=== PATIENT | female | born 1940 | race Caucasian/White ===

== ENCOUNTER 2021-08-28 07:07 | Emergency (ER) | payer OTHER ==
--- OUTSIDE RECORDS SUMMARY | 2021-08-28 07:09 | XMS REPORT | Continuity of Care Document ---
:1940 Author Organization [facility] Address [address] [place] [address] Care Team Providers Name Role Phone Rosa Elena Gianluca Primary Care Physician Seema BURGOS Attending Clinician Unavailable Pob, Lab Main Attending Clinician Unavailable Seema Burgos MD Attending Clinician Doctor Unassigned, Name Attending Clinician Unavailable Lab, Fam Pob I Attending Clinician Unavailable Anene L[employer]GR[employer]ESS FEEDER Attending Clinician ANEYAO Attending Clinician Unavailable Adolfo Attending Clinician Unavailable Seema BURGOS Admitting Clinician Unavailable Payers Payer Name Policy Type Policy Number Effective Date Expiration Date S johanna SANFORDTRUPALI MANAGED [id number] 2020 MEDICARE PPO-MARLON 00:00:00 Problems This patient has no known problems. Allergies, Adverse Reactions, Alerts Allergy Allergy Status Severity Reaction(s) Onset Inactive Treating Comm ents Source Name Type Date Date Clinician NO KNOWN Drug Active Univers ALLERGIE Class ity of [facility] Social History Social Habit Start Date Stop Date Quantity Comments Source Exposure to Yes [facility] SARS-CoV-2 (event) Medica l Branch Sex Assigned At [birth year] [facility] 00:00:00 00:00:00 Medical Branch Smoking Status Start Date Stop Date Source Unknown if ever smoked [facility] Medications This patient has no known medications. Procedures Procedure Date / Time Performed Performing Clinician Sourc e CBC WITH DIFF 2021-05-10 19:01:00 Severiano Burgos [facility] ASSIGNMENT OF BENEFITS 2021-05-10 18:28:51 Doctor Unassigned, No [facility] Encounters Start End Encounter Admission Attending Care Care Encounter Source Date/Time Date/Time Type Type Clinicians Facility Department ID 2021-07-03 Outpatient R TRE [facility] OPH [id number] Univers 17:51:00 SEVERIANO itche [facility] 2021-05-16 2021-05-16 Outpatient R [facility] [id number] Univers 11:00:00 11:00:00 [id number] ity [facility] 2021-05-10 2021-05-10 [employer] Jesus Luciano Lab Main [facility] 1.2.8 [id number] Univers 13:41:14 13:56:14 Visit Tre Severiano Del Cid 350.1.13.1 0 ity of [place] [phone] [facility] [address] 2021-05-10 2021-05-10 Outpatient R [facility] [id number] Univers 11:45:00 11:45:00 [id number] ity [facility] 2021-05-10 2021-05-10 Outpatient R TRE [facility] [id number] Univers 11:45:00 11:45:00 SEVERIANO che [facility] 2021-05-10 2021-05-10 Orders Doctor MILAGROS [id number] Univers 00:00:00 00:00:00 Only Unassigned, LAUREN 350.1.13.10 ity of [place] [facility] 4.2.7.2.686 Javier as [phone] [address] 2020-08-02 2020-08-02 Laboratory Lab, [facility] Fam Pob I [facility] 1.2. [id number] Univers 16:02:10 16:22:10 Only Anene, [facility] 350.1.13.10 ity of [place] 4.2.7.2.686 Javier as Professio [phone] Vt dical nal [address] 2020-08-02 2020-08-02 Laboratory Lab, [facility] [id number] 16:02:10 16:22:10 Only Fam Pob I Health 350.1.13.10 [place] 4.2.7.2.686 Tarah [phone] nal [address] 2020-08-02 2020-08-02 Outpatient Hermelindo GUY [facility] [id number] Univers 16:00:00 16:00:00 KELLY chen [facility] Results Test Description Test Time Test Comments Results Result Comments Source CBC WITH DIFF 2021-05-10 19:04:39 Test Item Value Reference Range Interpretation Comme nts WBC (test code = 6690-2) See_Comment [A utomated message] The system which ge nerated this result transmit tracie reference range: 4.30 - 1 1.10 10*3/?L. The reference r melanie was not used to interpr et this result as normal/abnor mal. RBC (test code = 789-8) See_Comment L [Au tomated message] The system which ge nerated this result transmit tracie reference range: 3.93 - 5 .25 10*6/?L. The reference r melanie was not used to interpr et this result as normal/abnor mal. HGB (test code = 718-7) 11.8 g/dL 11.6-15.0 HCT (test code = 4544-3) 37.5 % 35.7-45.2 MCV (test code = 787-2) 100.5 fL 80.6-95.5 H MCH (test code = 785-6) 31.6 pg 25.9-32.8 MCHC (test code = 786-4) 31.5 g/dL 31.6-35.1 L RDW-SD (test code = 41812-7) 46.1 fL 39.0-49.9 RDW-CV (test code = 788-0) 12.5 % 12.0-15.5 PLT (test code = 777-3) See_Comment [Au tomated message] The system which ge nerated this result transmit tracie reference range: 166 - 35 8 10*3/?L. The reference range was not used to interpret th is result as normal/abnormal . MPV (test code = 91237-3) 10.4 fL 9.5-12.9 NRBC/100 WBC (test code = See_Comment [ Automated message] The [id number]) system which Playto nerated this result transmit tracie reference range: 0.0 - 10 .0 /100 WBCs. The reference r melanie was not used to interpr et this result as normal/abnor mal. NRBC x10^3 (test code = <0.01 See_Comment [Au tomated message] The [id number]) system which Playto nerated this result transmit tracie reference range: 10*3/?L. The reference range was not u sed to interpret this result as normal/abnormal . GRAN MAT (NEUT) % (test code 64.8 % = 770-8) IMM GRAN % (test code = 0.30 % [id number]) LYMPH % (test code = 736-9) 29.0 % MONO % (test code = 5905-5) 4.8 % EOS % (test code = 713-8) 0.5 % BASO % (test code = 706-2) 0.6 % GRAN MAT x10^3(ANC) (test 5.14 10*3/uL 1.88-7.09 code = 8589492372) IMM GRAN x10^3 (test code = <0.03 0.00-0.06 6623482823) LYMPH x10^3 (test code = 2.30 10*3/uL 1.32-3.29 731-0) MONO x10^3 (test code = 0.38 10*3/uL 0.33-0.92 742-7) EOS x10^3 (test code = 0.04 10*3/uL 0.03-0.39 711-2) BASO x10^3 (test code = 0.05 10*3/uL 0.01-0.07 704-7) Lab Interpretation (test Abnormal code = 60216-1) [facility] WITH [id number] 19:04:39 Test Item Value Reference Range Interpretation Comments WBC (test code = See_Comment [Automated 0590-2) message] The sy stem which generated this result transmitted reference range : 4.30 - 11.10 10*3/?L. The reference range was not used to interpret this result as normal/abnormal . RBC (test code = See_Comment L [Automated 929-8) message] The sy stem which generated this result transmitted reference range : 3.93 - 5.25 10*6/?L. The reference range was not used to interpret this result as normal/abnormal . HGB (test code = 11.8 g/dL 11.6-15.0 718-7) HCT (test code = 37.5 % 35.7-45.2 4544-3) MCV (test code = 100.5 fL 80.6-95.5 H 787-2) MCH (test code = 31.6 pg 25.9-32.8 785-6) MCHC (test code = 31.5 g/dL 31.6-35.1 L 786-4) RDW-SD (test code = 46.1 fL 39.0-49.9 74044-6) RDW-CV (test code = 12.5 % 12.0-15.5 788-0) PLT (test code = See_Comment [Automated 777-3) message] The sy stem which generated this result transmitted reference range : 166 - 358 10*3/ ?L. The reference r melanie was not used to interpret this result as normal/abnormal . MPV (test code = 10.4 fL 9.5-12.9 71259-7) NRBC/100 WBC (test See_Comment [Automat ed code = 3998104818) message] The system which generated this result transmitted reference range : 0.0 - 10.0 /100 WBCs. The refer ence range was not u sed to interpret th is result as normal/abnormal . NRBC x10^3 (test code <0.01 See_Comment [Auto mated = [id number]) message] The s ystem which generated this result transmitted reference range : 10*3/?L. The reference range was not used to interpret this result as normal/abnormal . GRAN MAT (NEUT) % 64.8 % (test code = 770-8) IMM GRAN % (test code 0.30 % = 0442247695) LYMPH % (test code = 29.0 % 736-9) MONO % (test code = 4.8 % 5905-5) EOS % (test code = 0.5 % 713-8) BASO % (test code = 0.6 % 706-2) GRAN MAT x10^3(ANC) 5.14 10*3/uL 1.88-7.09 (test code = 6856114235) IMM GRAN x10^3 (test <0.03 0.00-0.06 code = 0587521211) LYMPH x10^3 (test code 2.30 10*3/uL 1.32-3.29 = 731-0) MONO x10^3 (test code 0.38 10*3/uL 0.33-0.92 = 742-7) EOS x10^3 (test code = 0.04 10*3/uL 0.03-0.39 711-2) BASO x10^3 (test code 0.05 10*3/uL 0.01-0.07 = 704-7) Lab Interpretation Abnormal (test code = 35270-5) [facility] LUMBAR [id number] 11:34:29 [facility] : 1940 Sex: FCLINICAL INDICATION: M54.16 Radiculopathy, lumbar region, bilateral low back hip and leg pain.MODALITY: Veroldsis 1.2 Evelin [place] Open MRITECHNIQUE: Multiplanar multi sequence MRI examination of the lumbar spine was performed.Comment: 5 mg p.o. Valium given for sedation.IMPRESSION:1. There are five lumbar vertebra with straightened lordosis.2. No fractures or destructive osseous lesions.3. Moderate - moderately advanced degeneration of each lumbar disc with loss of height, nuclear desiccation and circumferential endplate spondylosis.4. At L2-3 there is borderline canal size with mild to moderate bilateral foraminal/lateral recess narrowing, worse on the left.5. At L3-4 there is 4mm diffuse posterior spondylitic protrusion, eccentric to the left. There is mild central canal stenosis with increased epidural fat. There is moderate right and moderately severe left foraminal/lateral recess stenosis.6. At L4-5 there is 5 mm broad-based spondylitic protrusion with mild central canal stenosis. Moderately severe bilateral foraminal and lateral recess stenosis is worse on the right.7. There is mild bilateral foraminal narrowing at L5-S1. 8. Multilevel facet arthrosis with degenerated, ligamentum flavum hypertrophy.FINDINGS:COMPARISON: noneGeneral observations: Five lumbar verteb ra seen with straightened lordosis. There is minimal S-shaped curvature.Vertebral body heights are well maintained. There are no fractures or destructive osseous lesions. Mild to moderate fibrofatty/sclerotic degenerative endplate changes are seen, most severe at L4-5.There is moderate loss of disc height at each lumbar disc level with nuclear desiccation and circumferential endplate spondylosis.Conus medullaris is normal, terminating at T12-L1. Cauda equina nerve roots are intrinsically normal.FINDINGS AT SPECIFIC LEVELS:L5-S1: There is moderately advanced loss of disc height with nuclear dehydration and spondylosis. 3 mm broad-based protrusion is present. Central canal is patent. Mild bilateral foraminal narrowing is present. Facet joints are mild to moderately degenerated bilaterally.L4-L5: There is advanced disc degeneration with loss of height, nuclear dehydration and reactive bone marrow changes in adjacent endplates. There is 5 mm broad-based spondylitic protrusion extending into both neural foramen. There is mild central canal stenosis. Moderately severe bilateral foraminal and lateralrecess stenosis is worse on the right. Relatively severe facet arthrosis with hypertrophic, degenerated ligamentum flavum noted bilaterally.L3-L4: There is moderate disc degeneration with spondylosis, nuclear desiccation and 4 mm diffuse posterior spondylitic protrusion, eccentric to the left. There is mild circumferential central canal stenosis with increased epidural fat. Moderate right and moderately severe left foraminal and lateral recess stenosis is present. Moderate hypertrophic facet arthrosis is present with degenerated, prominent ligamentum flavum.L2-L3: There is moderate loss of disc height with nuclear desiccation and spondylosis. 3 mm spondylitic protrusion flattens ventral thecal sac. Canal size is borderline with mild to moderate bilateral foraminal and lateral recess narrowing, worse on the left. Facet joints are moderately degenerated with prominent ligamentum flavum.L1-L2: Discis moderately degenerated with loss of height, nuclear dehydration and circumferential endplate spondylosis. 2 mm - 3 mm diffuse spondylitic protrusion is present. Central canal is patent. Foramen are patent. Facet joints are mildly hypertrophic and degenerated.
[2021-08-28] MEDS ORDERED: NA CHLORIDE 0.9% 500 ML ONE ×2 (08:16→09:35)
[2021-08-28] MEDS ORDERED: NA CHLORIDE 0.9% 1,000 ML ONE (08:16)
--- NOTE | 2021-08-28 08:49 | RAD REPORT ---
EXAM DESCRIPTION: RAD - Chest Single View - 08/28/2021 8:43 am CLINICAL HISTORY: CHEST PAIN COMPARISON: None TECHNIQUE: AP portable chest image was obtained 08/28/2021 8:43 am . FINDINGS: No peripheral mass or consolidation. Interstitial pattern is believed to be baseline. A mi nimal amount of interstitial edema or infiltrate in the right base cannot be excluded on this baselin e study. Granuloma is seen in the upper left lung field. Diaphragmatic eventration present. Heart and vasculature are normal. No measurable pleural effusion a nd no pneumothorax. No acute bony abnormality seen. No acute aortic findings suspected. IMPRESSION: No acute cardiopulmonary process suspected. Minimal interstitial stranding in the right base is believed to be baseline. However, has an initial examination, a minimal right base interstitial edema or infiltrate cannot be excluded.
[2021-08-28 08:50] LABS: Urine Blood Trace-intact (Negative); Urine Glucose Negative (Negative); Urine Protein Negative (Negative); Urine pH 5.5 (5.0-7.0)
--- NOTE | 2021-08-28 08:50 | RAD REPORT ---
EXAM DESCRIPTION: CT - Head Brain Wo Cont - 08/28/2021 8:41 am CLINICAL HISTORY: DIZZINESS COMPARISON: No comparisons TECHNIQUE: Axial 5 mm thick images of the head were obtained without IV contrast. All CT scans are performed using dose optimization technique as appropriate and may include automated exposure control or mA/KV adjustment according to patient size. FINDINGS: No intracranial hemorrhage, mass, edema or shift of mid-line structures. No acute infarcti on changes seen. No abnormal extra-axial fluid collections. Ventricles are normal. Minimal bifrontal atrophy. Mastoid air cells and visualized portions of the paranasal sinuses are clear. No acute bony findings. IMPRESSION: Negative non-contrast CT head examination for acute or significant findings.
[2021-08-28 09:02] LABS: ALT/SGPT 17 U/L (12-78); AST/SGOT 13 U/L (15-37); Albumin 3.2 g/dL (3.4-5.0); Alkaline Phosphatase 83 U/L (45-117); BUN Blood Urea Nitrogen 21 mg/dL (7-18); Bicarbonate 28 mmol/L (21-32); Bilirubin Direct < 0.1 mg/dL (0-0.2); Bilirubin Total 0.3 mg/dL (0.2-1.0); Glucose Level 104 mg/dL (74-106); Lipase 133 U/L (73-393); Magnesium 2.4 mg/dL (1.8-2.4); NT PRO-BNP 289 pg/mL (<450); Potassium 3.8 mmol/L (3.5-5.1); Protein, Total 6.6 g/dL (6.4-8.2); Sodium Level 142 mmol/L (136-145); Troponin (Emerg Dept Use Only) < 0.02 ng/mL (0.0-0.045)
[2021-08-28 09:04] LABS: Absolute Lymphocytes (CBC) 1.4 K/uL (0.7-4.9); Hematocrit 35.1 % (36.0-45.0); Lymphocytes % 16.5 % (15.3-44.8); MPV 9.1 fL (7.6-11.3); Protime INR 1.01
[2021-08-28] MEDS ORDERED: MECLIZINE HCL 12.5 MG TAB ONE ×2 (09:32→09:40)
--- NOTE | 2021-08-28 11:03 | ER ---
Nurse's Notes [facility] Name: Nicholas Ledezma Age: 81 yrs Sex: Female : 1940 Arrival Date: 08/28/2021 Time: 07:18 Bed 8 Private MD: Diagnosis: Weakness;Diarrhea, unspecified Presentation: 08/28 07:32 Chief complaint: Patient states: she woke up this morning and felt really dizzy. She ap3 states she had her take her blood pressure, because she thought it was low, however her machine at home read 170's systolic. Patient also reports loose stools X's 1 this morning. Patient reports the dizziness has improved, but it still is present when she moves too fast or stands up. Coronavirus screen: At this time, the client does not indicate any symptoms associated with coronavirus-19. Ebola Screen: No symptoms or risks identified at this time. Initial Sepsis Screen: Does the patient meet any 2 criteria? No. Patient's initial sepsis screen is negative. Does the patient have a suspected source of infection? No. Patient's initial sepsis screen is negative. Risk Assessment: Do you want to hurt yourself or someone else? Patient reports no desire to harm self or others. Onset of symptoms was August 28, 2021. 07:32 Method Of Arrival: Wheelchair ap3 07:32 Acuity: JABIER 3 ap3 Triage Assessment: 07:42 General: Appears in no apparent distress. Behavior is calm, cooperative. General:. ap3 Pain: Denies pain. Neuro: Level of Consciousness is awake, alert, obeys commands, Oriented to person, place, time, situation, Appropriate for age Speech is normal. Neuro: Reports dizziness, since early this morning. Cardiovascular: Patient's skin is warm and dry. Respiratory: Airway is patent Respiratory effort is even, unlabored, Respiratory pattern is regular, symmetrical. GI: Reports diarrhea, just one time since this morning. Historical: - Allergies: 07:35 gabapentin; ap3 07:35 Levaquin; ap3 07:35 Augmentin; ap3 07:35 tizanidine; ap3 07:35 meloxicam; ap3 07:35 Lyrica; ap3 07:35 Aleve; ap3 - Home Meds: 07:35 levothyroxine 50 mcg tab 1 tab once daily [Active]; aspirin 81 mg Oral tab 81 mg daily ap3 [Active]; Butalbital Compound 50-300-40 Oral as needed [Active]; - PMHx: 07:35 Arthritis; bursitis; ap3 - Immunization history:: Client reports receiving the 2nd dose of the Covid vaccine. - Social history:: Smoking status: Patient denies any tobacco usage or history of. - Family history:: not pertinent. Screenin:43 Abuse screen: Denies threats or abuse. Nutritional screening: No deficits noted. ap3 Tuberculosis screening: No symptoms or risk factors identified. 08:39 Fall Risk None identified. Secondary diagnosis (15 points) dizziness. jg9 Assessment: 11:07 Reassessment: Patient appears in no apparent distress at this time. Patient and/or jg9 family updated on plan of care and expected duration. Pain level reassessed. Patient states feeling better. Patient states symptoms have improved. 11:20 Reassessment: Patient ambulated to the bathroom without difficulty, no jg9 lightheartedness/dizziness reported, gait steady. Vital Signs: 07:32 BP 165 / 73; Pulse 79; Resp 17; Temp 97.9(TE); Pulse Ox 100% on R/A; Weight 83.91 kg; ap3 Height 5 ft. 4 in. (162.56 cm); 09:21 BP 150 / 69; Pulse 76; Resp 18 S; Pulse Ox 100% on R/A; jg9 10:20 BP 154 / 80; Pulse 73; Resp 17 S; Pulse Ox 100% on R/A; jg9 11:00 BP 152 / 75; Pulse 75; Resp 17 S; Pulse Ox 100% on R/A; jg9 07:32 Body Mass Index 31.75 (83.91 kg, 162.56 cm) ap3 ED Course: 07:18 Patient arrived in ED. ds1 07:35 Triage completed. ap3 07:44 Arm band placed on right wrist. ap3 08:08 Alan Garibay MD is Attending Physician. alexys 08:12 Inserted saline lock: 20 gauge in right antecubital area, using aseptic technique. al4 ,using aseptic technique. started by ALBERT Stacy. 08:38 Thao Kline is Primary Nurse. jg9 08:40 Patient has correct armband on for positive identification. Bed in low position. Call j9 light in reach. 08:41 CT Head Brain wo Cont In Process Unspecified. EDMS 08:43 XRAY Chest (1 view) In Process Unspecified. EDMS 08:53 Urine collected: clean catch specimen, clear. [facility] 11:02 Jd Cuba MD is Referral Physician. [facility] 11:20 No provider procedures requiring assistance completed. 9 11:20 IV discontinued. jg9 Administered Medications: 11:21 Discontinued: NS 0.9% 1000 ml IV at 125 ml/hr continuous j9 08:26 Drug: NS 0.9% 500 ml Route: IV; Rate: bolus; Site: right antecubital; [facility] 09:20 Follow up: IV Status: Completed infusion; IV Intake: 500ml j9 09:19 Drug: NS 0.9% 1000 ml Route: IV; Rate: 125 ml/hr; Site: right antecubital; j9 11:22 Follow up: IV Status: Completed infusion; IV Intake: 500ml j9 09:40 Drug: Meclizine 25 mg Route: PO; j9 10:31 Follow up: Response: No adverse reaction; Marked relief of symptoms j9 09:45 Drug: NS 0.9% 500 ml Route: IV; Rate: bolus; Site: right antecubital; j9 10:31 Follow up: IV Status: Completed infusion; IV Intake: 500ml j9 Intake: 09:20 IV: 500ml; Total: 500ml. j9 10:31 IV: 500ml; Total: 1000ml. j9 11:22 IV: 500ml; Total: 1500ml. jg9 Outcome: 11:02 Discharge ordered by . [facility] 11:20 Discharged to [facility] 11:20 Condition: improved 11:20 Discharge instructions given to patient, Instructed on discharge instructions, follow up and referral plans. Demonstrated understanding of instructions, follow-up care, medications, Prescriptions given X 2. 11:21 Patient left the ED. j9 Signatures: Dispatcher [employer] Alan Perez MD MD cha Sanford, Demi ds1 Alexus Madison RN RN ap3 Coni Easley RN RN ll1 Sandor Diaz Jennifer jg9 Richard Almeida kv1 Corrections: (The following items were deleted from the chart) 07:42 07:35 Allergies: Metaxalone; ap3 ap3 08:26 08:26 COVID swab sent to lab. Flu and/or RSV swab sent to lab. Strep swab sent to lab. ap3 ap3
--- NOTE | 2021-08-28 11:03 | EDPHYS ---
Physician Documentation [facility] Name: Nicholas Ledezma Age: 81 yrs Sex: Female : 1940 Arrival Date: 08/28/2021 Time: 07:18 Bed 8 Private MD: ED Physician Alan Garibay HPI: 08/28 09:05 This 81 yrs old Female presents to ER via Wheelchair with complaints of alexys Dizziness. 09:05 The patient presents with dizziness, generalized weakness. Onset: The symptoms/episode alexys began/occurred this morning. Context: occurred at home. Modifying factors: The symptoms are alleviated by lying down, the symptoms are aggravated by movement of head, standing up. Associated signs and symptoms: Pertinent positives:. Severity of symptoms: At their worst the symptoms were mild in the emergency department the symptoms are unchanged. Patient's baseline: Neuro:. The patient has not experienced similar symptoms in the past. Historical: - Allergies: 07:35 gabapentin; ap3 07:35 Levaquin; ap3 07:35 Augmentin; ap3 07:35 tizanidine; ap3 07:35 meloxicam; ap3 07:35 Lyrica; ap3 07:35 Aleve; ap3 - Home Meds: 07:35 levothyroxine 50 mcg tab 1 tab once daily [Active]; aspirin 81 mg Oral tab 81 mg daily ap3 [Active]; Butalbital Compound 50-300-40 Oral as needed [Active]; - PMHx: 07:35 Arthritis; bursitis; ap3 - Immunization history:: Client reports receiving the 2nd dose of the Covid vaccine. - Social history:: Smoking status: Patient denies any tobacco usage or history of. - Family history:: not pertinent. ROS: 09:05 Constitutional: Negative for fever, chills, and weight loss, Eyes: Negative for injury, alexys pain, redness, and discharge, ENT: Negative for injury, pain, and discharge, Neck: Negative for injury, pain, and swelling, Cardiovascular: Negative for chest pain, palpitations, and edema, Respiratory: Negative for shortness of breath, cough, wheezing, and pleuritic chest pain, Abdomen/GI: Negative for abdominal pain, nausea, vomiting, diarrhea, and constipation, Back: Negative for injury and pain, : Negative for injury, bleeding, discharge, and swelling, MS/Extremity: Negative for injury and deformity, Skin: Negative for injury, rash, and discoloration, Neuro: Negative for headache, weakness, numbness, tingling, and seizure, Psych: Negative for depression, anxiety, suicide ideation, homicidal ideation, and hallucinations, Allergy/Immunology: Negative for hives, rash, and allergies, Endocrine: Negative for neck swelling, polydipsia, polyuria, polyphagia, and marked weight changes, Hematologic/Lymphatic: Negative for swollen nodes, abnormal bleeding, and unusual bruising. Exam: 09:05 Constitutional: This is a well developed, well nourished patient who is awake, alert, alexys and in no acute distress. Head/Face: Normocephalic, atraumatic. Eyes: Pupils equal round and reactive to light, extra-ocular motions intact. Lids and lashes normal. Conjunctiva and sclera are non-icteric and not injected. Cornea within normal limits. Periorbital areas with no swelling, redness, or edema. ENT: Nares patent. No nasal discharge, no septal abnormalities noted. Tympanic membranes are normal and external auditory canals are clear. Oropharynx with no redness, swelling, or masses, exudates, or evidence of obstruction, uvula midline. Mucous membranes moist. Neck: Trachea midline, no thyromegaly or masses palpated, and no cervical lymphadenopathy. Supple, full range of motion without nuchal rigidity, or vertebral point tenderness. No Meningismus. Chest/axilla: Normal chest wall appearance and motion. Nontender with no deformity. No lesions are appreciated. Cardiovascular: Regular rate and rhythm with a normal S1 and S2. No gallops, murmurs, or rubs. Normal PMI, no JVD. No pulse deficits. Respiratory: Lungs have equal breath sounds bilaterally, clear to auscultation and percussion. No rales, rhonchi or wheezes noted. No increased work of breathing, no retractions or nasal flaring. Abdomen/GI: Soft, non-tender, with normal bowel sounds. No distension or tympany. No guarding or rebound. No evidence of tenderness throughout. Back: No spinal tenderness. No costovertebral tenderness. Full range of motion. Female : Normal external genitalia. Skin: Warm, dry with normal turgor. Normal color with no rashes, no lesions, and no evidence of cellulitis. MS/ Extremity: Pulses equal, no cyanosis. Neurovascular intact. Full, normal range of motion. Neuro: Awake and alert, GCS 15, oriented to person, place, time, and situation. Cranial nerves II-XII grossly intact. Motor strength 5/5 in all extremities. Sensory grossly intact. Cerebellar exam normal. Normal gait. Psych: Awake, alert, with orientation to person, place and time. Behavior, mood, and affect are within normal limits. 09:22 ECG was reviewed by the Attending Physician. alexys Vital Signs: 07:32 BP 165 / 73; Pulse 79; Resp 17; Temp 97.9(TE); Pulse Ox 100% on R/A; Weight 83.91 kg; ap3 Height 5 ft. 4 in. (162.56 cm); 09:21 BP 150 / 69; Pulse 76; Resp 18 S; Pulse Ox 100% on R/A; jg9 10:20 BP 154 / 80; Pulse 73; Resp 17 S; Pulse Ox 100% on R/A; jg9 11:00 BP 152 / 75; Pulse 75; Resp 17 S; Pulse Ox 100% on R/A; jg9 07:32 Body Mass Index 31.75 (83.91 kg, 162.56 cm) ap3 MDM: 08:[address] [facility] 09:12 Differential diagnosis: cardiac arrhythmia, generalized weakness, hypovolemia, alexys idiopathic dizziness, near-syncope, vertigo. Data reviewed: vital signs, nurses notes, lab test result(s), EKG, radiologic studies, CT scan, plain films. Data interpreted: residential monitor: rate is 79 beats/min, rhythm is regular, Pulse oximetry: on room air. Test interpretation: by ED physician or midlevel provider: ECG, plain radiologic studies. 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 08/28 08:09 Order name: Basic Metabolic Panel; Complete Time: 09:11 alexys 08/28 08:09 Order name: CBC with Diff; Complete Time: :11 alexys 08/28 08:09 Order name: LFT's; Complete Time: 09: [facility] 08/28 08:09 Order name: Magnesium; Complete Time: 09:11 [facility] 08/28 08:09 Order name: NT PRO-BNP; Complete Time: 09:11 [facility] 08/28 08:09 Order name: PT-INR; Complete Time: 09:11 [facility] 08/28 08:09 Order name: Troponin (emerg Dept Use Only); Complete Time: 09:11 [facility] 08/28 08:09 Order name: XRAY Chest (1 view); Complete Time: 09:11 [facility] 08/28 08:09 Order name: Lipase; Complete Time: 09:11 [facility] 08/28 08:09 Order name: CT Head Brain wo Cont; Complete Time: 09:11 [facility] 08/28 08:50 Order name: Urine Dipstick-Ancillary; Complete Time: 09:11 [facility] 08/28 08:09 Order name: EKG; Complete Time: 08:10 [facility] 08/28 08:09 Order name: Cardiac monitoring; Complete Time: 08:21 [facility] 08/28 08:09 Order name: EKG - Nurse/Tech; Complete Time: 08:21 [facility] 08/28 08:09 Order name: IV Saline Lock; Complete Time: 08:26 [facility] 08/28 08:09 Order name: Labs collected and sent; Complete Time: 08:26 [facility] 08/28 08:09 Order name: O2 Per Protocol; Complete Time: 08:20 [facility] 08/28 08:09 Order name: O2 Sat Monitoring; Complete Time: 08:20 [facility] 08/28 08:09 Order name: Urine Dipstick-Ancillary (obtain specimen); Complete Time: 10:11 [facility] EC:22 Rate is 71 beats/min. Rhythm is regular. QRS Spencer is Normal. [place] interval is normal. QRS alexys interval is normal. QT interval is normal. No Q waves. T waves are Normal. No ST changes noted. Clinical impression: NSR w/ Non-specific ST/T Changes and No evidence of ischemia. Interpreted by me. Reviewed by me. Administered Medications: 11:21 Discontinued: NS 0.9% 1000 ml IV at 125 ml/hr continuous jg9 08:26 Drug: NS 0.9% 500 ml Route: IV; Rate: bolus; Site: right antecubital; ll1 09:20 Follow up: IV Status: Completed infusion; IV Intake: 500ml jg9 09:19 Drug: NS 0.9% 1000 ml Route: IV; Rate: 125 ml/hr; Site: right antecubital; jg9 11:22 Follow up: IV Status: Completed infusion; IV Intake: 500ml jg9 09:40 Drug: Meclizine 25 mg Route: PO; jg9 10:31 Follow up: Response: No adverse reaction; Marked relief of symptoms jg9 09:45 Drug: NS 0.9% 500 ml Route: IV; Rate: bolus; Site: right antecubital; jg9 10:31 Follow up: IV Status: Completed infusion; IV Intake: 500ml jg9 Disposition Summary: 08/28/21 11:02 Discharge Ordered Location: Home alexys Problem: new alexys Symptoms: have improved alexys Condition: Stable alexys Diagnosis - Weakness alexys - Diarrhea, unspecified alexys Followup: alexys - With: Private Physician - When: 2 - 3 days - Reason: Recheck today's complaints, Continuance of care, Re-evaluation by your physician Followup: alexys - With: - When: 2 - 3 days - Reason: Recheck today's complaints, Continuance of care, Re-evaluation by your physician Discharge Instructions: - Discharge Summary Sheet alexys - Diarrhea, Adult alexys - Near-Syncope alexys - Weakness alexys - Fatigue alexys - Near-Syncope, [id number] alexys - Weakness, [id number] alexys Forms: - Medication Reconciliation Form alexys - Thank You Letter alexys - Antibiotic Education alexys - Prescription Opioid Use [facility] Prescriptions: - Meclizine 25 mg Oral Tablet - take 1 tablet by ORAL route every 8 hours As needed; 30 tablet; Refills: 0, [facility] Product Selection Permitted - Zofran 4 mg Oral Tablet - take 1 tablet by ORAL route every 12 hours As needed; 20 tablet; Refills: 0, [facility] Product Selection Permitted Signatures: Dispatcher [employer] Alan Perez MD MD cha Prokisch, Amanda, RN RN aidee3 Coni Easley RN RN 1 Thao Kline jg9 Corrections: (The following items were deleted from the chart) 07:42 07:35 Allergies: Metaxalone; ap3 ap3
[2021-08-28 11:25] VITALS: TEMP 97.9; O2SAT 100
[2021-08-28 11:29] VITALS: BP 152/75
== END 2021-08-28 11:21 | disposition home or self-care (01) ==
LOC: ER 07:07
DX: R19.7 Diarrhea, unspecified (principal); Z79.82 Long term (current) use of aspirin; Z88.1 Allergy status to other antibiotic agents; Z88.8 Allergy status to other drugs, medicaments and biological substances
CPT/HCPCS: 96361; 93005; 85025; 80048; 36415; 83735; 85610; 80076; 81003; 84484; 83690; 83880; 70450; 71045; 96360; 99284; J7040 ×2; J7030; J8597

== ENCOUNTER 2024-06-24 16:06 | Emergency (ER) | payer OTHER ==
--- OUTSIDE RECORDS SUMMARY | 2024-06-24 16:11 | XMS REPORT | Continuity of Care Document ---
Author Name Unknown Address [address] [place] [address] [facility] thconnect Address 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 Name Role Phone JD MAE Primary Care Physician UnavailSEVERIANO Wilks Attending Clinician Unavailab VALENTINO Martinez Attending Clinician Unav ailVALENTINO Godfrey Attending Clinician Taniav zayda Samuels Attending Clinician Unavail able [id number]_Rdahaa_S Attending Clinician UnavailKm Caro Attending Clinician Unavailable Severiano Toledo MD Attending Clinician [phone] Only, Adc Test Attending Clinician Unavailable Doctor Unassigned, [place] Attending Clinician U navailable Pob, [facility] Lab Main Attending Clinician Unavailabl e Lab, Adc Fam Pob I Attending Clinician UnavailKelly Mishra Attending Clinician [phone] KELLY GUY Attending Clinician Unavailable SEVERIANO TOLEDO Admitting Clinician Caitlin Hanna Admitting Clinician Unavail able SANDRAGCBZW_Radhaa_S Admitting Clinician Kimberly [email or web address] [id number] Admitting Clinician Severiano Denney MD Admitting Clinician [phone] Payers Payer Name Policy Type Policy Number Effective Date Expirati on Date Source [employer] MANAGED MEDICARE PPO-[facility] [id number] 2020 00:00:00 [employer] (MEDICARE REPLACEMENT PPO) [id number] 2021 00:00:00 Problems Condition Name Condition Details Condition Category Status Onset Date Resolution Date Last Treatment Date Treating Clinician Comments Source Pain in lumbar spine Pain in Lumbar Spine Problem Active 4-19 00:00: 00 [facility] Lumbar radiculopa thy Lumbar Radiculopa thy Problem Active 05-14 00:00: 00 [facility] Pain in bilateral legs Pain in Bilateral Legs Problem Active 05-14 00:00: 00 [facility] Degenerati on of lumbar interverte bral disc Degenerati on of Lumbar Interverte bral Disc Problem Active 2010-09 0 00:00: 00 [facility] Myofascial low back pain Myofascial Low Back Pain Problem Active 02-14 00:00: 00 [facility] Allergies, Adverse Reactions, Alerts Allergy Name Allergy Type Status Severity Reaction(s) Onset Date Inactive Date Treating Clinician Comments Source SULFA (SULFONA MIDE ANTIBIOT ICS) Drug Class Active HYPERTENSION 03-28 00:00: 00 [facility] Sulfa (Sulfona mide Antibiot ics) Propensi ty to adverse reaction s Active Hypertension 03-28 00:00: 00 [facility] NSAIDS (NON-ARYA ROIDAL ANTI-INF LAMMATOR Y DRUG) Drug Class Active Low Other-Cmnt 02-16 00:00: 00 [facility] Nsaids (Non-Arya roidal Anti-Inf lammator y Drug) Propensi ty to adverse reaction s to drug Active Other - See comments 02-16 00:00: 00 Decreased renal function [facility] Nsaids (Non-Arya roidal Anti-Inf lammator y Drug) Propensi ty to adverse reaction s to drug Active Other - See comments 02-16 00:00: 00 Decreased renal function [facility] AMOXICIL CINDY-POT CLAVULAN ATE DRUG Active Diarrhea 0 18 00:00: 00 [facility] E.E.S. DRUG Active Diarrhea 0 18 00:00: 00 [facility] GABAPENT IN DRUG INGREDI Active N/V 0 18 00:00: 00 [facility] LEVOFLOX ACIN DRUG INGREDI Active Hallucinates 0 01-17 00:00: 00 [facility] Amoxicil cindy-Pot Clavulan ate Drug Intolera nce Active Diarrhea 0 01-17 00:00: 00 [facility] E.E.S. Drug Intolera nce Active Diarrhea 0 01-17 00:00: 00 [facility] Gabapent in Drug Intolera nce Active Nausea and/or Vomiting 0 01-17 00:00: 00 [facility] Levoflox acin Propensi ty to adverse reaction s to drug Active Hallucinatio ns 01-17 00:00: 00 Tachycard ia and nightmarr es [facility] Erythrom ycin Allergy to substanc e Active Nausea 05-14 00:00: 00 [facility] LEVAQUIN Allergy to substanc e Active 0 05-14 00:00: 00 [facility] GABAPENT IN Allergy to substanc e Active 0 04-28 00:00: 00 [facility] Lyrica Allergy to substanc e Active 0 04-28 00:00: 00 [facility] Meloxica m Allergy to substanc e Active 0 04-28 00:00: 00 [facility] Aleve Allergy to substanc e Active Nausea 0 04-28 00:00: 00 [facility] Augmenti n Allergy to substanc e Active Diarrhea 0 04-28 00:00: 00 [facility] Celebrex Allergy to substanc e Active 0 04-28 00:00: 00 [facility] NO KNOWN ALLERGIE S Drug Class Active [facility] Social History Social Habit Start Date Stop Date Quantity Comments [facility] function 2022-02-21 00:00:00 2022-02-21 00:00:00 [facility] Exposure to SARS-CoV-2 (event) 2022-02-06 00:00:00 2022-02-16 10:46:00 Not sure [facility] Tobacco use and exposure 2022-01-17 00:00:00 2022-01-17 00:00:00 Smokeless tobacco non-user [facility] Sex assigned at 1940 00:00:00 1940 00:00:00 [facility] Smoking Status Start Date Stop Date Source Unknown if ever smoked [facility] Never smoked tobacco [facility] Medications Ordered Medication Name Filled Medication Name Start Date Stop Date Current Medication? Ordering Clinician Indication Dosage Frequency Signature (SIG) Comments Components Source acetaminoph en (TYLENOL) tablet 1,000 mg 03-29 06:00: 00 03-29 05:44 :00 No 1000mg 1,000 mg, Oral, ONCE NOW, 1 dose, On 03/29/24 at 0100, Routine [facility] neomycin-po lymyxin-dex amethasone (MAXITROL) 3.5 mg/g-10,000 unit/g-0.1 % ophthalmic ointment 02-21 17:08: 00 02-21 17:21 :26 No PRN, Starting on Sat02/21/22 at 1208, Until Sat02/21/22 at 1221, Routine, Intra-op [facility] dexamethaso ne (DECADRON PHOSPHATE) injection 02-21 17:07: 00 02-21 17:21 :26 No PRN, Starting on Sat02/21/22 at 1207, Until Sat02/21/22 at 1221, Routine, Intra-op [facility] ceFAZolin (ANCEF) injection 02-21 17:07: 00 02-21 17:21 :26 No PRN, Starting on Sat02/21/22 at 1207, Until Sat02/21/22 at 1221, COOKIE, Intra-op [facility] carbachoL (MIOSTAT) 0.01 % intraocular injection 02-21 17:07: 00 02-21 17:21 :26 No PRN, Starting on Sat02/21/22 at 1207, Until Sat02/21/22 at 1221, Routine, Intra-op [facility] chondroitin sulf-sod hyaluronate (DUOVISC VISCO ELASTIC) intraocular injection 02-21 17:06: 00 02-21 17:21 :26 No PRN, Starting on Sat02/21/22 at 1206, Until Sat02/21/22 at 1221, Routine, Intra-op [facility] EPINEPHrine 1:1,000 (1 mg/mL) (ADRENALIN) injection 02-21 17:04: 00 02-21 17:21 :26 No PRN, Starting on Sat02/21/22 at 1204, Until Sat02/21/22 at 1221, Routine, Intra-op [facility] balanced salt irrig soln comb1 (BSS PLUS) ophthalmic solution 500 mL bag 02-21 17:04: 00 02-21 17:21 :26 No PRN, Starting on Sat02/21/22 at 1204, Until Sat02/21/22 at 1221, Routine, Intra-op [facility] sodium chloride (NS) injection 02-21 17:01: 00 02-21 17:21 :26 No PRN, Starting on Sat02/21/22 at 1201, Until Sat02/21/22 at 1221, Routine, Intra-op [facility] water for irrigation irrigation solution 02-21 16:59: 00 02-21 17:21 :26 No PRN, Starting on Sat02/21/22 at 1159, Until Sat02/21/22 at 1221, Routine, Intra-op [facility] Hyaluronida se, Human Recomb. (HYLENEX) injection 02-21 16:56: 00 02-21 17:21 :26 No PRN, Starting on Sat02/21/22 at 1156, Until Sat02/21/22 at 1221, Routine, Intra-op [facility] eye block syringe 11 mL 02-21 16:56: 00 02-21 17:21 :26 No PRN, Starting on Sat02/21/22 at 1156, Until Sat02/21/22 at 1221, Intra-op [facility] aspirin 81 mg EC tablet 02-21 15:23: 24 Yes 81mg Take 81 mg by mouth daily. [facility] ascorbic acid, vitamin C, (VITAMIN C) 500 mg tablet 02-21 15:23: 24 Yes 500mg Take 500 mg by mouth daily. [facility] Zinc 50 mg Tab 02-21 15:23: 24 Yes 50mg Take 50 mg by mouth daily. [facility] loratadine 10 mg tablet 02-21 15:23: 24 Yes 10mg Take 10 mg by mouth once daily as needed for Allergies. [facility] calcium carbonate/v itamin D3 (CALTRATE 600 + D ORAL) 02-21 15:23: 24 Yes 1{tbl} Take 1 tablet by mouth daily. [facility] butalbital- acetaminoph en-caff 50-325-40 mg tablet 02-21 15:23: 24 Yes 1{tbl} Take 1 tablet by mouth every 4 (four) hours as needed for Headache. Rarely takes [facility] Zinc 50 mg Tab 02-21 15:23: 24 Yes 50mg Take 50 mg by mouth daily. [facility] cyclopent 1%-tropic 1%-phenyl 2.5%-ketor 0.5% (MYDRIATIC #5) ophthalmic solution syringe 0.5 mL 02-21 15:00: 00 02-21 15:08 :00 No .5mL 0.5 mL, Left Eye, ONCE, 1 dose, On Sat02/21/22 at 1000, Routine, DSU Pre-op [facility] lactated ringers IV infusion 1,000 mL 02-21 15:00: 00 02-21 15:08 :00 No 1000mL at 42 mL/hr, 1,000 mL, IV Infusion, ONCE, 1 dose, On Sat02/21/22 at 1000, Routine, DSU Pre-op [facility] aspirin 81 mg EC tablet 02-16 10:43: 56 Yes 81mg Take 81 mg by mouth daily. [facility] ascorbic acid, vitamin C, (VITAMIN C) 500 mg tablet 02-16 10:43: 56 Yes 500mg Take 500 mg by mouth daily. [facility] Zinc 50 mg Tab 02-16 10:43: 56 Yes 50mg Take 50 mg by mouth daily. [facility] loratadine 10 mg tablet 02-16 10:43: 56 Yes 10mg Take 10 mg by mouth once daily as needed for Allergies. [facility] calcium carbonate/v itamin D3 (CALTRATE 600 + D ORAL) 02-16 10:43: 56 Yes 1{tbl} Take 1 tablet by mouth daily. [facility] butalbital- acetaminoph en-caff 50-325-40 mg tablet 02-16 10:43: 56 Yes 1{tbl} Take 1 tablet by mouth every 4 (four) hours as needed for Headache. Rarely takes [facility] sodium chloride (NS) injection 01-24 17:13: 00 Yes PRN, Starting on Sat01/24/22 at 1213, Until Discontinu ed, Routine, Intra-op [facility] neomycin-po lymyxin-dex amethasone (MAXITROL) 3.5 mg/g-10,000 unit/g-0.1 % ophthalmic ointment 01-24 17:13: 00 Yes PRN, Starting on Sat01/24/22 at 1213, Until Discontinu ed, Routine, Intra-op [facility] dexamethaso ne (DECADRON PHOSPHATE) injection 01-24 17:13: 00 Yes PRN, Starting on Sat01/24/22 at 1213, Until Discontinu ed, Routine, Intra-op [facility] ceFAZolin (ANCEF) injection 01-24 17:13: 00 Yes PRN, Starting on Sat01/24/22 at 1213, Until Discontinu ed, COOKIE, Intra-op [facility] carbachoL (MIOSTAT) 0.01 % intraocular injection 01-24 17:12: 00 Yes PRN, Starting on Sat01/24/22 at 1212, Until Discontinu ed, Routine, Intra-op [facility] water for irrigation irrigation solution 01-24 17:06: 00 Yes PRN, Starting on Sat01/24/22 at 1206, Until Discontinu ed, Routine, Intra-op [facility] chondroitin sulf-sod hyaluronate (DUOVISC VISCO ELASTIC) intraocular injection 01-24 17:03: 00 Yes PRN, Starting on Sat01/24/22 at 1203, Until Discontinu ed, Routine, Intra-op [facility] balanced salt irrig soln comb1 (BSS PLUS) ophthalmic solution 500 mL bag 01-24 17:03: 00 Yes PRN, Starting on Sat01/24/22 at 1203, Until Discontinu ed, Routine, Intra-op [facility] EPINEPHrine 1:1,000 (1 mg/mL) (ADRENALIN) injection 01-24 17:02: 00 Yes PRN, Starting on Sat01/24/22 at 1202, Until Discontinu ed, Routine, Intra-op [facility] Hyaluronida se, Human Recomb. (HYLENEX) injection 01-24 16:51: 00 Yes PRN, Starting on Sat01/24/22 at 1151, Until Discontinu ed, Routine, Intra-op [facility] eye block syringe 11 mL 01-24 16:51: 00 Yes PRN, Starting on Sat01/24/22 at 1151, Until Discontinu ed, Intra-op [facility] cyclopent 1%-tropic 1%-phenyl 2.5%-ketor 0.5% (MYDRIATIC #5) ophthalmic solution syringe 0.5 mL 01-24 15:00: 00 01-24 14:58 :00 No .5mL 0.5 mL, Right Eye, ONCE, 1 dose, On Sat01/24/22 at 1000, Routine, DSU Pre-op [facility] aspirin 81 mg EC tablet 01-24 12:44: 58 Yes 81mg Take 81 mg by mouth daily. [facility] ascorbic acid, vitamin C, (VITAMIN C) 500 mg tablet 01-24 12:44: 58 Yes 500mg Take 500 mg by mouth daily. [facility] Zinc 50 mg Tab 01-24 12:44: 58 Yes 50mg Take 50 mg by mouth daily. [facility] loratadine 10 mg tablet 01-24 12:44: 58 Yes 10mg Take 10 mg by mouth once daily as needed for Allergies. [facility] calcium carbonate/v itamin D3 (CALTRATE 600 + D ORAL) 01-24 12:44: 58 Yes 1{tbl} Take 1 tablet by mouth daily. [facility] butalbital- acetaminoph en-caff 50-325-40 mg tablet 01-24 12:44: 58 Yes 1{tbl} Take 1 tablet by mouth every 4 (four) hours as needed for Headache. Rarely takes [facility] butalbital- acetaminoph en-caff 50-325-40 mg tablet 01-17 15:22: 51 Yes 1{tbl} Take 1 tablet by mouth every 4 (four) hours as needed for Headache. Rarely takes [facility] Zinc 50 mg Tab 01-17 15:22: 51 Yes 50mg Take 50 mg by mouth daily. [facility] loratadine 10 mg tablet 01-17 15:22: 51 Yes 10mg Take 10 mg by mouth once daily as needed for Allergies. [facility] calcium carbonate/v itamin D3 (CALTRATE 600 + D ORAL) 01-17 15:22: 51 Yes 1{tbl} Take 1 tablet by mouth daily. [facility] aspirin 81 mg EC tablet 01-17 15:22: 50 Yes 81mg Take 81 mg by mouth daily. [facility] ascorbic acid, vitamin C, (VITAMIN C) 500 mg tablet 01-17 15:22: 50 Yes 500mg Take 500 mg by mouth daily. [facility] methocarbam ol 500 mg tablet TAKE 1 TABLET BY MOUTH EVERY 12 HOURS FOR 30 DAYS methocarbam ol 500 mg tablet TAKE 1 TABLET BY MOUTH EVERY 12 HOURS FOR 30 DAYS 04-28 00:00: 00 No methocarba mol 500 mg tablet TAKE 1 TABLET BY MOUTH EVERY 12 HOURS FOR 30 DAYS [facility] tramadol 37.5 mg-acetamin ophen 325 mg tablet 1 TABLET NEEDED FOR PAIN ORALLY EVERY 8 HRS 14 DAYS tramadol 37.5 mg-acetamin ophen 325 mg tablet 1 TABLET NEEDED FOR PAIN ORALLY EVERY 8 HRS 14 DAYS No tramadol 37.5 mg-acetami nophen 325 mg tablet 1 TABLET NEEDED FOR PAIN ORALLY EVERY 8 HRS 14 DAYS [facility] trazodone 50 mg tablet TAKE 1/2-1 TABLET BY MOUTH AT BEDTIME trazodone 50 mg tablet TAKE 1/2-1 TABLET BY MOUTH AT BEDTIME No trazodone 50 mg tablet TAKE 1/2-1 TABLET BY MOUTH AT BEDTIME [facility] amlodipine 5 mg tablet TAKE 1 TABLET BY MOUTH EVERY DAY amlodipine 5 mg tablet TAKE 1 TABLET BY MOUTH EVERY DAY No amlodipine 5 mg tablet TAKE 1 TABLET BY MOUTH EVERY DAY [facility] BinaxNOW COVID-19 Ag Self Test kit USE DIRECTED BinaxNOW COVID-19 Ag Self Test kit USE DIRECTED No BinaxNOW COVID-19 Ag Self Test kit USE DIRECTED [facility] butalbital- acetaminoph en-caffeine 50 mg-300 mg-40 mg capsule TAKE 1 CAPSULE BY MOUTH FOUR TIMES A DAY NEEDED FOR HEADACHE butalbital- acetaminoph en-caffeine 50 mg-300 mg-40 mg capsule TAKE 1 CAPSULE BY MOUTH FOUR TIMES A DAY NEEDED FOR HEADACHE No butalbital -acetamino phen-caffe ine 50 mg-300 mg-40 mg capsule TAKE 1 CAPSULE BY MOUTH FOUR TIMES A DAY NEEDED FOR HEADACHE [facility] levocetiriz ine 5 mg tablet TAKE 1 TABLET BY MOUTH EVERYDAY AT BEDTIME levocetiriz ine 5 mg tablet TAKE 1 TABLET BY MOUTH EVERYDAY AT BEDTIME No levocetiri zine 5 mg tablet TAKE 1 TABLET BY MOUTH EVERYDAY AT BEDTIME [facility] levothyroxi ne 75 mcg tablet TAKE 1 TABLET BY MOUTH EVERY DAY levothyroxi ne 75 mcg tablet TAKE 1 TABLET BY MOUTH EVERY DAY No levothyrox ine 75 mcg tablet TAKE 1 TABLET BY MOUTH EVERY DAY [facility] alprazolam 0.25 mg tablet TAKE 1 TABLET BY MOUTH ONCE FOR MRI SEDATION ON 1 DAY alprazolam 0.25 mg tablet TAKE 1 TABLET BY MOUTH ONCE FOR MRI SEDATION ON 1 DAY No alprazolam 0.25 mg tablet TAKE 1 TABLET BY MOUTH ONCE FOR MRI SEDATION ON 1 DAY [facility] amlodipine 2.5 mg tablet TAKE 1 TABLET BY MOUTH EVERY DAY FOR 90 DAYS amlodipine 2.5 mg tablet TAKE 1 TABLET BY MOUTH EVERY DAY FOR 90 DAYS No amlodipine 2.5 mg tablet TAKE 1 TABLET BY MOUTH EVERY DAY FOR 90 DAYS [facility] gabapentin 5%,ketoprof en 10%,cyclobe nzaprine hcl 2%,lidocain e 5% Apply 1-2 gram(s) topically TO affected area(s) UP TO four times daily Gabapentin 5%,Ketoprof en 10%,Cyclobe nzaprine HCl 2%,Lidocain e 5% gabapentin 5%,ketoprof en 10%,cyclobe nzaprine hcl 2%,lidocain e 5% Apply 1-2 gram(s) topically TO affected area(s) UP TO four times daily Gabapentin 5%,Ketoprof en 10%,Cyclobe nzaprine HCl 2%,Lidocain e 5% No gabapentin 5%,ketopro fen 10%,cyclob enzaprine hcl 2%,lidocai ne 5% Apply 1-2 gram(s) topically TO affected area(s) UP TO four times daily Gabapentin 5%,Ketopro fen 10%,Cyclob enzaprine HCl 2%,Lidocai ne 5% [facility] isosorbide mononitrate ER 30 mg tablet,exte nded release 24 hr TAKE 1 TABLET BY MOUTH EVERY DAY IN THE MORNING FOR 30 DAYS isosorbide mononitrate ER 30 mg tablet,exte nded release 24 hr TAKE 1 TABLET BY MOUTH EVERY DAY IN THE MORNING FOR 30 DAYS No isosorbide mononitrat e ER 30 mg tablet,ext ended release 24 hr TAKE 1 TABLET BY MOUTH EVERY DAY IN THE MORNING FOR 30 DAYS [facility] losartan 50 mg tablet TAKE 1 TABLET BY MOUTH TWICE A DAY FOR 30 DAYS losartan 50 mg tablet TAKE 1 TABLET BY MOUTH TWICE A DAY FOR 30 DAYS No losartan 50 mg tablet TAKE 1 TABLET BY MOUTH TWICE A DAY FOR 30 DAYS [facility] propranolol 10 mg tablet TAKE 1/2 TABLET BY MOUTH TWO TIMES A DAY propranolol 10 mg tablet TAKE 1/2 TABLET BY MOUTH TWO TIMES A DAY No propranolo l 10 mg tablet TAKE 1/2 TABLET BY MOUTH TWO TIMES A DAY [facility] sulfamethox azole 800 mg-trimetho prim 160 mg tablet TAKE 1 TABLET BY MOUTH TWICE A DAY sulfamethox azole 800 mg-trimetho prim 160 mg tablet TAKE 1 TABLET BY MOUTH TWICE A DAY No sulfametho xazole 800 mg-trimeth oprim 160 mg tablet TAKE 1 TABLET BY MOUTH TWICE A DAY [facility] Immunizations Ordered Immunization Name Filled Immunization Name Date Status Comments Source influenza, unspecified formulation influenza, unspecified formulation Unknown Completed [facility] Pneumococcal Conjugate, unspecified formulation Pneumococcal Conjugate, unspecified formulation Unknown Completed [facility] Vital Signs Vital Name Observation Time Observation Value Comments S ource Body Weight 2024-04-29 00:00:00 185 [lb_av] [facility] Height 2024-04-29 00:00:00 64 [in_i] [facility] BMI (Body Mass Index) 2024-04-29 00:00:00 31.8 kg/m2 [facility] Systolic blood pressure 2024-03-29 06:00:00 149 mm[Hg] [facility] Diastolic blood pressure 2024-03-29 06:00:00 68 mm[Hg] [facility] Heart rate 2024-03-29 06:00:00 80 /min [facility] Body temperature 2024-03-29 06:00:00 37.28 [facility] Respiratory rate 2024-03-29 06:00:00 13 /min [facility] Oxygen saturation in Arterial blood by Pulse oximetry 2024-03-29 06:00:00 99 /min [facility] Body height 2024-03-29 04:43:00 162.6 cm [facility] Body weight 2024-03-29 04:43:00 79.379 kg [facility] BMI 2024-03-29 04:43:00 30.04 kg/m2 [facility] Height 2022-12-19 00:00:00 64 [in_i] [facility] BMI (Body Mass Index) 2022-12-19 00:00:00 31.8 kg/m2 [facility] Body Weight 2022-12-19 00:00:00 185 [lb_av] [facility] Height 2022-10-17 00:00:00 64 [in_i] [facility] BMI (Body Mass Index) 2022-10-17 00:00:00 31.8 kg/m2 [facility] Body Weight 2022-10-17 00:00:00 185 [lb_av] [facility] Systolic blood pressure 2022-02-21 17:35:00 134 mm[Hg] [facility] Diastolic blood pressure 2022-02-21 17:35:00 62 mm[Hg] [facility] Heart rate 2022-02-21 17:35:00 74 /min [facility] Respiratory rate 2022-02-21 17:35:00 14 /min [facility] Oxygen saturation in Arterial blood by Pulse oximetry 2022-02-21 17:35:00 100 /min [facility] Body temperature 2022-02-21 17:20:00 36.22 [facility] Body height 2022-02-07 18:27:00 162.6 cm [facility] Body weight 2022-02-07 18:27:00 83.9 kg [facility] BMI 2022-02-07 18:27:00 31.73 kg/m2 [facility] Systolic blood pressure 2022-02-21 15:02:00 131 mm[Hg] [facility] Diastolic blood pressure 2022-02-21 15:02:00 66 mm[Hg] [facility] Heart rate 2022-02-21 15:02:00 76 /min [facility] Body temperature 2022-02-21 15:02:00 36.11 [facility] Respiratory rate 2022-02-21 15:02:00 18 /min [facility] Oxygen saturation in Arterial blood by Pulse oximetry 2022-02-21 15:02:00 98 /min [facility] Body height 2022-02-07 18:27:00 162.6 cm [facility] Body weight 2022-02-07 18:27:00 83.9 kg [facility] BMI 2022-02-07 18:27:00 31.73 kg/m2 [facility] Systolic blood pressure 2022-01-24 17:35:00 137 mm[Hg] [facility] Diastolic blood pressure 2022-01-24 17:35:00 60 mm[Hg] [facility] Heart rate 2022-01-24 17:35:00 73 /min [facility] Respiratory rate 2022-01-24 17:35:00 17 /min [facility] Oxygen saturation in Arterial blood by Pulse oximetry 2022-01-24 17:35:00 100 /min [facility] Body temperature 2022-01-24 17:20:00 36.33 [facility] Body height 2022-01-17 20:00:00 162.6 cm [facility] Body weight 2022-01-17 20:00:00 83.915 kg [facility] BMI 2022-01-17 20:00:00 31.76 kg/m2 [facility] Systolic blood pressure 2022-01-24 14:47:00 141 mm[Hg] [facility] Diastolic blood pressure 2022-01-24 14:47:00 62 mm[Hg] [facility] Heart rate 2022-01-24 14:47:00 76 /min [facility] Body temperature 2022-01-24 14:47:00 36.22 [facility] Respiratory rate 2022-01-24 14:47:00 15 /min [facility] Oxygen saturation in Arterial blood by Pulse oximetry 2022-01-24 14:47:00 98 /min [facility] Body height 2022-01-17 20:00:00 162.6 cm [facility] Body weight 2022-01-17 20:00:00 83.915 kg [facility] BMI 2022-01-17 20:00:00 31.76 kg/m2 [facility] Procedures Procedure Date / Time Performed Performing Clinician Source RADEX SPI LUMBOSAC MINIMUM 4 VIEWS 2024-04-29 00:00:00 [facility] EKG-12 LEAD 2024-03-29 06:24:49 Valentino Llamas [facility] TROPONIN I 2024-03-29 05:26:00 Valentino Llamas [facility] COMP. METABOLIC PANEL ([id number]) 2024-03-29 05:26:00 Valentino Llamas [facility] CBC WITH DIFF 2024-03-29 05:26:00 Valentino Llamas [facility] RADEX SPI LUMBOSAC MINIMUM 4 VIEWS 2022-10-17 00:00:00 [facility] PHACOEMULSIFICATION OF CATARACT WITH INTRAOCULAR LENS IMPLANT 2022-02-21 16:47:00 Severiano Toledo [facility] [facility] ASSIGNMENT OF BENEFITS 2022-02-16 16:15:18 Doctor Unassigned, [facility] PHACOEMULSIFICATION OF CATARACT WITH INTRAOCULAR LENS IMPLANT 2022-01-24 16:40:00 Severiano Toledo [facility] ASSIGNMENT OF BENEFITS 2022-01-22 16:35:15 Doctor Unassigned, [facility] CBC WITH DIFF 2021-05-10 19:01:00 Severiano Toledo [facility] ASSIGNMENT OF BENEFITS 2021-05-10 18:28:51 Doctor Unassigned, [facility] Colonoscopy 2019-10-04 00:00:00 [facility] Mammography 2019-10-04 00:00:00 [facility] Foot Surgery [facility] Hysterectomy [facility] Hemorrhoidectomy [facility] Encounters Start Date/Time End Date/Time Encounter Type Admission Type Attending Clinicians Care Facility Care Department Encounter ID Source 2021-07-03 17:51:00 Outpatient R SEVERIANO TOLEDO [facility] OPH [id number] [facility] 2024-04-29 00:00:00 2024-04-29 00:00:00 Toni Randlal MD: [id number] [place] [address] , Ph. [phone] [facility] - [facility] [place] [id number] [facility] 2024 23:48:00 2024-03-29 01:53:00 Emergency X VALENTINO LLAMAS ERIN [facility] ERT [id number] [facility] 2024 23:48:00 2024-03-29 01:53:00 Emergency Valentino Llamas [facility] 1.2.840.114 350.1.13.10 4.2.7.2.686 [id number] [facility] 2023-07-10 00:00:00 2023-07-10 00:00:00 Outpatient NIKKI_Berry_ Min_ [facility] [id number] [facility] 2023-06-30 00:00:00 2023-06-30 00:00:00 Outpatient GC_GCBZW_Ka diyala_S PRIV [facility] [id number] [facility] 2023-02-25 00:00:00 2023-02-25 00:00:00 Outpatient FOG_Stocks_ Min_ [facility] AO [id number] [facility] 2023-02-25 00:00:00 2023-02-25 00:00:00 Outpatient FOG_Stocks_ Min_ A[facility] AO [id number] [facility] 2023-02-03 00:00:00 2023-02-03 00:00:00 Outpatient FOG_Stocks_ Min_ [facility] AO [id number] [facility] 2022-12-30 00:00:00 2022-12-30 00:00:00 Outpatient FOG_Stocks_ Min_ [facility] AO [id number] [facility] 2022-12-19 00:00:00 2022-12-19 00:00:00 Toni Randall MD: [id number] [place] [address] , Ph. [phone] [facility] [place] [facility] [place] [id number] [facility] 2022-10-25 00:00:00 2022-10-25 00:00:00 Outpatient FOG_Stocks_ Min_ [facility] AO [id number] [facility] 2022-10-25 00:00:00 2022-10-25 00:00:00 Outpatient FOG_Stocks_ Leeor_ A[facility] AO [id number] [facility] 2022-10-21 00:00:00 2022-10-21 00:00:00 Outpatient FOG_Stocks_ Min_ [facility] [id number] [facility] 2022-10-17 00:00:00 2022-10-17 00:00:00 Outpatient FOG[facility]Purvi [facility] [id number] [facility] 2022-10-17 00:00:00 2022-10-17 00:00:00 Toni Randall MD: [id number] [facility], [place] [address] , Ph. [phone] [facility] [place] [facility] [place] [id number] [facility] 2022-09-21 00:00:00 2022-09-21 00:00:00 Outpatient FOG_Purvi Copeland_ AO AO [id number] [facility] 2022-02-21 09:43:00 2022-02-21 12:50:00 Outpatient SEVERIANO CARRILLO [facility] OPH [id number] [facility] 2022-02-21 09:43:00 2022-02-21 12:50:00 Hospital Encounter TreSeveriano [facility] [place] 1..840.114 350.1.13.10 4.2.7.2.686 [id number] [facility] 2022-02-21 10:36:00 2022-02-21 11:13:00 Surgery [facility] [place] 1.2.840.114 350.1.13.10 4.2.7.2.686 [id number] [facility] 2022-02-19 10:15:00 2022-02-19 10:30:00 Laboratory Only Only, Adc Test Severiano Toledo [facility] 1.2.840.114 350.1.13.10 4.2.7.2.686 [id number] [facility] 2022-02-19 10:15:00 2022-02-19 10:15:00 Outpatient SEVERIANO CARRILLO [facility] [id number] [facility] 2022-02-16 00:00:00 2022-02-16 00:00:00 Orders Only Doctor Unassigned, [facility] 1.2.840.114 350.1.13.10 4.2.7.2.686 [id number] [facility] 2022-01-24 09:44:00 2022-01-24 12:44:00 Hospital Encounter Severiano Toledo [facility] [place] 1.2.840.114 350.1.13.10 4.2.7.2.686 [id number] [facility] 2022-01-24 09:44:00 2022-01-24 12:44:00 Outpatient R TRESEVERIANO [facility] OPH [id number] [facility] 2022-01-24 10:39:00 2022-01-24 11:16:00 Surgery Severiano Toledo [facility] [place] 1.2.840.114 350.1.13.10 4.2.7.2.686 [id number] [facility] 2022-01-22 11:15:00 2022-01-22 11:30:00 Laboratory Only Only, Adc Test Severiano Toledo [facility] 1.2.840.114 350.1.13.10 4.2.7.2.686 [id number] [facility] 2022-01-22 11:15:00 2022-01-22 11:15:00 Outpatient R TRESEVERIANO [facility] [id number] [facility] 2022-01-22 00:00:00 2022-01-22 00:00:00 Orders Only Doctor Unassigned, [facility] 1.2.840.114 350.1.13.10 4.2.7.2.686 [id number] [facility] 2022-01-19 11:45:00 2022-01-19 12:00:00 Internal Control Analyst Visit [facility] Severiano Toledo [facility] 1.0114 350.1.13.10 4.2.7.2.686 [id number] [facility] 2022-01-19 11:45:00 2022-01-19 11:45:00 Outpatient SEVERIANO CARRILLO [facility] [id number] [facility] 2021-05-10 13:41:14 2021-05-10 13:56:14 Internal Control Analyst Visit [facility], [facility] Severiano Toledo [facility] 1.84.114 350.1.13.10 4.2.7.2.686 [id number] [facility] 2021-05-10 11:45:00 2021-05-10 11:45:00 Outpatient SEVERIANO CARRILLO [facility] [id number] [facility] 2021-05-10 00:00:00 2021-05-10 00:00:00 Orders Only Doctor Unassigned, [facility] 1..114 350.1.13.10 4.2.7.2.686 [id number] [facility] 2020-08-02 16:02:10 2020-08-02 16:22:10 Laboratory Only Lab, [facility] I Cheryl Kelly [facility] Office [facility] 1.114 350.1.13.10 4.2.7.2.686 [id number] [facility] 2020-08-02 16:02:10 2020-08-02 16:22:10 Laboratory Only Lab, [facility] I [facility] 1..114 350.1.13.10 4.2.7.2.686 [id number] 2020-08-02 16:00:2020-08-02 16:00:00 Outpatient KELLY MANCINI [facility] [id number] [facility] Results Test Description Test Time Test Comments Results Resul t Comments Source MRI LUMBAR WO 2023-05-16 13:41:24 [facility] : 1940 Sex: F CL INICAL INDICATION: M54.16, Radiculopathy, lumbar region MODALITY: Siemens Ositoyra 3.0 Evelin MRI TECHNIQUE: Multiplanar multi sequence MRI examination of the lumbar spine was performed.IMPRESSION: Extreme spondylosis and facet arthropathy similar to 2019, with a new 5 mm left lateral recess to proximal foraminal protrusion at L2-T4IDPOIDFQ:Compari son: MRI lumbar spine July 25, 2020Normal lumbar lordosis, with diffuse heterogeneous red marrow reconversion and fibrofatty Modic endplate changes.Conus terminates at L1, no abnormal cord signal demonstrated.FINDINGS AT SPECIFIC LEVELS:L1-L2: Advanced disc desiccation and disc height loss, with 4 mm rightward lateralizing disc/osteophyte complex effacing the right ventral aspect of the thecal sac and associated with moderate bilateral facet arthropathy with moderate resultant right lateral recess and foraminal stenosis.L2-L3: Advanced disc desiccation and disc height loss, with circumferential 2 mm spondylotic protrusion and new asymmetric 5 mm left lateral recess to proximal foraminal protrusion component obliterating the left lateral recess and compressing the left L3 nerve root. Prominent bilateral facet arthropathy.L3-L4: Moderate disc desiccation and disc height loss, with circumferential 3-4 mm leftward lateralizing spondylotic protrusion and pronounced facet arthropathy resulting in severe left lateral recess and proximal foraminal stenosis. L4-L5: Advanced disc desiccation and disc height loss, with circumferential 3 mm disc/osteophyte complex and pronounced facet arthropathy resulting in severe right lateral recess and mild bilateral foraminal stenosis.L5-S1: Moderate disc desiccation and disc height loss, with circumferential 2 mm spondylotic protrusion and an asymmetric 3 mm left paracentral to lateral recess slightly cranial migratory chronic disc protrusion and moderate bilateral facet arthropathy. No significant canal stenosis. NM CT SPECT (EG, HEAD, NECK, CHEST, PELVIS) SINGLE AREA [[id number]] 2022-12-07 15:03:55 [facility] : 1940 Sex: F CL INICAL INDICATION: M51.36, Other intervertebral disc degeneration, lumbar regionMODALITY: Discovery NM/CT 670TECHNIQUE: 25 mCi Tc 99m MDP are injected IV. After a suitable time delay, whole body imaging images were obtained. SPECT imaging of the lumbar spine is performed with computer and physician-assisted 2-D and 3-D reconstruction. Co-registered low dose limited diagnostic CT images are obtained at the level of SPECT imaging.Computed Tomography Dose Index: 6.18 mGy.FINDINGS:COMPARIS ON: Fusion CT exam.CT Comments: None.Symmetric bilateral renal function is observed.Mild to moderate bilateral acromioclavicular, glenohumeral, sternoclavicular, hip, knee tricompartmental, and right midfoot arthritic uptake is present. Scattered periodontal uptake is observed.SPECT CT fusion imaging of the lumbar spine demonstrates moderate right lateral L1-2 and mild to moderate left lateral L3-4 intervertebral disc space localization with associated modic and reactive vertebral endplate change. No significant facet localization is identified.IMPRESSION :See comments above.PQRS 147: 3570F (For office use only). [facility] WITH [id number] 19:04:39* Test Item Value Reference Range Interpretation Comme nts WBC (test code = 6690-2) See_Comment [Automated messa ge] The system which generated this result transmitted reference range: 4.30 - 11.10 10*3/?L. The reference range was not used to interpret this result as normal/abnormal. RBC (test code = 789-8) See_Comment L [Automated messa ge] The system which generated this result transmitted reference range: 3.93 - 5.25 10*6/?L. The reference range was not used to interpret this result as normal/abnormal. HGB (test code = 718-7) 11.8 g/dL 11.6-15.0 HCT (test code = 4544-3) 37.5 % 35.7-45.2 MCV (test code = 787-2) 100.5 fL 80.6-95.5 H MCH (test code = 785-6) 31.6 pg 25.9-32.8 MCHC (test code = 786-4) 31.5 g/dL 31.6-35.1 L RDW-SD (test code = 87003-6) 46.1 fL 39.0-49.9 RDW-CV (test code = 788-0) 12.5 % 12.0-15.5 PLT (test code = 777-3) See_Comment [Automated messa ge] The system which generated this result transmitted reference range: 166 - 358 10*3/?L. The reference range was not used to interpret this result as normal/abnormal. MPV (test code = 41333-2) 10.4 fL 9.5-12.9 NRBC/100 WBC (test code = 4212746958) See_Comment [Automated me ssage] The system which generated this result transmitted reference range: 0.0 - 10.0 /100 WBCs. The reference range was not used to interpret this result as normal/abnormal. NRBC x10^3 (test code = 1763406529) <0.01 See_Comment [Automated messa ge] The system which generated this result transmitted reference range: 10*3/?L. The reference range was not used to interpret this result as normal/abnormal. GRAN MAT (NEUT) % (test code = 770-8) 64.8 % IMM GRAN % (test code = 1327881237) 0.30 % LYMPH % (test code = 736-9) 29.0 % MONO % (test code = 5905-5) 4.8 % EOS % (test code = 713-8) 0.5 % BASO % (test code = 706-2) 0.6 % GRAN MAT x10^3(ANC) (test code = 3183259238) 5.14 10*3/uL 1.88-7.09 IMM GRAN x10^3 (test code = 5963003679) <0.03 0.00-0.06 LYMPH x10^3 (test code = 731-0) 2.30 10*3/uL 1.32-3.29 MONO x10^3 (test code = 742-7) 0.38 10*3/uL 0.33-0.92 EOS x10^3 (test code = 711-2) 0.04 10*3/uL 0.03-0.39 BASO x10^3 (test code = 704-7) 0.05 10*3/uL 0.01-0.07 Lab Interpretation (test code = 78892-7) [id number] 11:34:29 [facility]SA LEDEZMA : 1940 Sex: FCLINICAL INDIC ATION: M54.16 Radiculopathy, lumbar region, bilateral low back hip and leg pain.MODALITY: Hitachi Oglesby 1.2 Evelin [place] Open MRITECHNIQUE: Multiplanar [...] on the left.5. At L3-4 there is 4 mm diffuse posterior spondylitic protrusion, eccentric to the left. There is mild central canal stenosis with increased epidural fat. There is moderate right and moderately severe left foraminal/lateral recess stenosis.6. At L4-5 there is 5 mm broad- based spondylitic protrusion with mild central canal stenosis. Moderately severe bilateral foraminal and lateral recess stenosis is worse on the right.7. There is mild bilateral foraminal narrowing at L5-S1. 8. Multilevel facet arthrosis with degenerated, ligamentum flavum hypertrophy.FINDINGS:COMPARISON: noneGeneral observations: Five lumbar vertebra seen with straightened lordosis. There is minimal S-shaped curvature.Vertebral body heights are well maintained. There are no fractures or destructive osseous lesions. Mild to moderate fibrofatty/sclerotic degenerative endplate changes are seen, most severe at L4- 5.There is moderate loss of disc height at eachlumbar disc level with nuclear desiccation and circumferential [...] height, nuclear dehydration and reactive bone marrow changesin adjacent endplates. There is 5 mm broad-based spondylitic protrusion extending into both neural foramen. There is mild central canal stenosis. Moderately severe bilateral foraminal and lateral recess stenosis is worse on the right. Relatively severe facet arthrosis with hypertrophic, degeneratedligamentum flavum noted bilaterally.L3-L4: There is moderate disc degeneration with spondylosis, nuclear desiccation and 4 mm diffuse posterior spondylitic protrusion, eccentric to the left. There ismild circumferential central canal stenosis with increased epidural [...] joints are moderately degenerated with prominent ligamentum flavum.L1-L2:Disc is moderately degenerated with loss of height, nuclear dehydration and circumferential endplate spondylosis. 2 mm - 3 mm diffuse spondylitic protrusion is present. Central canal is patent. Foramen are patent. Facet joints are mildly hypertrophic and degenerated. Notes Date/Time Note Provider Source 2024-03-29 01:47:51 Pt given printed and verbal discharge instructions regarding headache, SOB, and HTN. Pt verbalized understanding of instructions, pt awake alert oriented, resp reg unlabored, skin w/d, color appropriate for race, moves all ext well, pt encouraged to follow up with pcp. Advised to seek medical attention for new/prolonged/worsening of symptoms. No adverse reaction to meds given in ER noted upon discharge. PIV d'cd, dressing to site, catheter in tact. Awake, alert oriented, resp reg unlabored, skin w/d, pt leaving amb with steady gait, in no apparent distress. T Kerry Alvares RN [facility] 2024-03-29 00:45:38 Pt refused Reglan and Benadryl. Pt denies headache, but states she has neck stiffness. [facility] 2024 23:42:04 Pt to ED CO high blood pressure readings starting this morning up to 186/97. Pt takes amlodipine. Reports not taking her medications recently due to low blood pressure readings prior to taking her medications. No CP. Reports some JACOBO. Denies headache. Reports recent stress with her husbands passing and today being her birthday. 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 Patient with blood pressure of 162/86. Patient initially denied headache in triage, but now reports occipital headache. Patient denies chest pain. Patient reports mild exertional dyspnea. Patient reports that she did not take amlodipine medications over last 2 days (secondary to blood pressure being normal). Today blood pressure elevated and she took extra doses. Past Medical History/Immunizations: No past medical history on file. Tetanus received in last 5 years: Yes Childhood immunizations: Up-to-date Allergies: Allergies Allergen Reactions Augmentin [Amoxicillin-Pot Clavulanate] Diarrhea E.E.S. Diarrhea Gabapentin Nausea and/or Vomiting Levaquin [Levofloxacin] Hallucinations Tachycardia and nightmarres Sulfa (Sulfonamide Antibiotics) Hypertension Nsaids (Non-Steroidal Anti-Inflammatory Drug) Other - See comments Decreased renal function Past Social History: Tobacco Use Never smoked or used smokeless tobacco. Past Surgical History: Past Surgical History: Procedure Laterality Date PHACOEMULSIFICATION OF CATARACT WITH INTRAOCULAR LENS IMPLANT Right 01/24/2022 Surgeon: Severiano Toledo MD; Location: [facility] PHACOEMULSIFICATION OF CATARACT WITH INTRAOCULAR LENS IMPLANT Left 02/21/2022 Surgeon: Severiano Toledo MD; Location: [facility] OR LOCATION Review of Systems: Review of Systems Constitutional: Positive for fatigue. Negative for activity change, appetite change and fever. HENT: Negative for congestion, facial swelling and rhinorrhea. Eyes: Negative for photophobia and visual disturbance. Respiratory: Positive for shortness of breath. Negative for apnea, cough, choking, chest tightness, wheezing and stridor. Cardiovascular: Negative for chest pain, palpitations and leg swelling. Gastrointestinal: Negative for abdominal distention, abdominal pain, anal bleeding, blood in stool, constipation, diarrhea, nausea and vomiting. Genitourinary: Negative for dysuria. Musculoskeletal: Negative for neck pain. Neurological: Negative for dizziness, tremors, seizures, syncope, facial asymmetry, speech difficulty, weakness, light-headedness, numbness and headaches. Physical Exam: ED Triage Vitals [03/28/24 2343] Weight 79.4 kg (175 lb) Actual or estimated Estimated by patient/family report Height 1.626 m (5' 4") BP (!) 162/86 Pulse 101 Resp 16 Temp 37.3 ?C (99.1 ?F) Temp source Oral SpO2 100 % Measured on Room air Physical Exam Vitals and nursing note reviewed. Constitutional: General: She is not in acute distress. Appearance: She is well-developed. She is not diaphoretic. HENT: Head: Normocephalic and atraumatic. Eyes: General: No scleral icterus. Right eye: No discharge. Left eye: No discharge. Conjunctiva/sclera: Conjunctivae normal. Cardiovascular: Rate and Rhythm: Normal rate and regular rhythm. Heart sounds: Normal heart sounds. No murmur heard. No friction rub. No gallop. Pulmonary: Effort: Pulmonary effort is normal. No respiratory distress. Breath sounds: Normal breath sounds. No wheezing. Chest: Chest wall: No tenderness. Abdominal: General: There is no distension. Palpations: Abdomen is soft. There is no mass. Tenderness: There is no abdominal tenderness. There is no guarding or rebound. Musculoskeletal: Cervical back: Neck supple. Skin: General: Skin is warm and dry. Neurological: Mental Status: She is alert and oriented to person, place, and time. Cranial Nerves: No cranial nerve deficit. Coordination: Coordination normal. Psychiatric: Behavior: Behavior normal. Radiology: No orders to display Lab Results: Lab Results CBC WITH DIFF - Abnormal Result Value Ref Range WBC 8.50 4.30 - 11.10 10*3/?L RBC 3.60 (*) 3.93 - 5.25 10*6/?L HGB 11.8 11.6 - 15.0 g/dL HCT 36.7 35.7 - 45.2 % MCV 101.9 (*) 80.6 - 95.5 fL MCH 32.8 25.9 - 32.8 pg MCHC 32.2 31.6 - 35.1 g/dL RDW-SD 45.8 39.0 - 49.9 fL RDW-CV 12.2 12.0 - 15.5 % PLT 187 166 - 358 10*3/?L MPV 10.2 9.5 - 12.9 fL NRBC/100 WBC 0.0 0.0 - 10.0 /100 WBCs NRBC x10 3 <0.01 10*3/?L GRAN MAT (NEUT) % 70.1 % IMM GRAN % 0.20 % LYMPH % 21.8 % MONO % 7.3 % EOS % 0.2 % BASO % 0.4 % GRAN MAT x10 3 (ANC) 5.96 1.88 - 7.09 10*3/uL IMM GRAN x10 3 <0.03 0.00 - 0.06 10*3/uL LYMPH x10 3 1.85 1.32 - 3.29 10*3/uL MONO x10 3 0.62 0.33 - 0.92 10*3/uL EOS x10 3 <0.03 (*) 0.03 - 0.39 10*3/uL BASO x10 3 0.03 0.01 - 0.07 10*3/uL COMP. METABOLIC PANEL (92298) - Abnormal NA 140 135 - 145 mmol/L K 3.6 3.5 - 5.0 mmol/L CL 106 98 - 108 mmol/L CO2 TOTAL 26 23 - 31 mmol/L AGAP 8 2 - 16 BUN 16 7 - 23 mg/dL GLUCOSE 112 (*) 70 - 110 mg/dL CREATININE 0.90 0.50 - 1.04 mg/dL TOTAL BILI 0.6 0.1 - 1.1 mg/dL CALCIUM 9.3 8.6 - 10.6 mg/dL T PROTEIN 7.1 6.3 - 8.2 g/dL ALBUMIN 4.3 3.5 - 5.0 g/dL ALK PHOS 84 34 - 122 U/L ALTv 12 5 - 35 U/L AST(SGOT) 26 13 - 40 U/L eGFR 63.6 mL/min/1.73m2 TROPONIN I - Normal TROPONIN I <0.012 <=0.034 ng/mL EKG: If EKG completed, see Procedure Note. Orders and Treatments: Orders Placed This Encounter Procedures Cbc with Diff Comp. Metabolic Panel (17031) Troponin I Orders Placed This Encounter Medications metoclopramide HCl (REGLAN) injection 10 mg diphenhydrAMINE (BENADRYL) injection 25 mg acetaminophen (TYLENOL) tablet 1,000 mg First Provider Eval: ED Events Date/Time Event User Comments 03/28/24 2353 Medical Screening Begins VALENTINO LLAMAS MD -- 03/28/242352 First Provider Evaluation VALENTINO LLAMAS MD -- ED COURSE Diagnosis/Impression as of 03/29/24 0121 Headache, unspecified headache type SOB (shortness of breath) Hypertension, unspecified type Procedures: EKG-12 Lead ROUTINE ONCE Date/Time: 03/29/2024 1:04 AM Performed by: Valentino Llamas MD Authorized by: Valentino Llamas MD Rate: ECG rate: 82 ECG rate assessment: normal Rhythm: Rhythm: sinus rhythm Ectopy: Ectopy: none QRS: QRS axis: Normal QRS intervals: Normal QRS conduction: normal ST segments: ST segments: Normal T waves: T waves: normal Other findings: Other findings: LAE MDM: Medical Decision Making Melissa Ledezma is a 84 year-old female with known HTN presenting to the ER with HTN. Patient, as above, had not taken BP medications during prior days (secondary to BP not being elevated). Patient also with mild occipital headache. Patient received headache cocktail, and improvement in headache symptoms and blood pressure. Patient reports that the headache felt more like neck pain, muscle pain. Repeat VS improved BP (!) 149/68 | Pulse 80 | Temp 37.3 ?C (99.1 ?F) (Oral) | Resp 13 | Ht 1.626 m (5' 4") | Wt 79.4 kg (175 lb) | SpO2 99% | BMI 30.04 kg/m? Plan for discharge home with close PCP and/or specialty follow up. Patient advised to take BP medications as prescribed and discuss with prescribing physician BP medications and possibly adjusting BP medications. Problems Addressed: Headache, unspecified headache type: self-limited or minor problem Hypertension, unspecified type: chronic illness or injury SOB (shortness of breath): self-limited or minor problem Amount and/or Complexity of Data Reviewed Labs: ordered. Risk OTC drugs. Prescription drug management. Flowsheet Documentation: Scoring Tools: No data recorded Disposition/Condition: ED Disposition ED Disposition Disch - Home Condition Stable Comment -- Discharge Medications: Patient's Medications START taking these medications No medications on file CONTINUE taking these medications which have NOT CHANGED AMLODIPINE 5 MG TABLET Take 5 mg by mouth daily. ASCORBIC ACID, VITAMIN C, (VITAMIN C) 500 MG TABLET Take 500 mg by mouth daily. ASPIRIN 81 MG EC TABLET Take 81 mg by mouth daily. [id number] 50-325-40 MG TABLET Take 1 tablet by mouth every 4 (four) hours as needed for Headache. Rarely takes CALCIUM CARBONATE/VITAMIN D3 (CALTRATE 600 + D ORAL) Take 1 tablet by mouth daily. LEVOTHYROXINE 75 MCG TABLET Take 75 mcg by mouth every morning. LORATADINE 10 MG TABLET Take 10 mg by mouth once daily as needed for Allergies. ZINC 50 MG TAB Take 50 mg by mouth daily. START taking Modified Medications as Prescribed No medications on file STOP taking these medications No medications on file Follow-up: Electronically signed by: Valentino Llamas MD 03/29/24123 [facility]
[2024-06-24 17:50] LABS: Absolute Lymphocytes (CBC) 1.4 K/uL (0.7-4.9); Absolute Monocytes 0.4 K/uL (0.1-1.3); Absolute Neutrophil 4.9 K/uL (1.8-8.0); Basophils % 0.6 % (0-1.3); Eosinophils % 0.2 % (0-4.4); Hematocrit 35.4 % (36.0-45.0); Hemoglobin 11.7 g/dL (12.0-15.0); Lymphocytes % 20.5 % (15.3-44.8); MCH 32.5 pg (27.0-35.0); MCV 98.3 fL (80-100); MPV 8.5 fL (7.6-11.3); Monocytes % 5.8 % (3.3-12.3); Neutrophils % 72.9 % (41.7-73.7); Platelets 179 thou/uL (152-406); Red Cell Distribution Width 12.4 % (12.1-15.2)
--- NOTE | 2024-06-24 17:50 | RAD REPORT ---
Procedure: Chest Single View HISTORY: Chest pain COMPARISON: 2021 FINDINGS: The lungs appear clear of acute infiltrate.. Lungs are hyperaerated. No significant pleural effusion noted. The heart is normal size. IMPRESSION: No acute abnormality is displayed.
[2024-06-24 18:14] LABS: AST/SGOT 14 U/L (15-37); Albumin 3.5 g/dL (3.4-5.0); Albumin/Globulin Ratio 1.1 (1.1-1.8); Alkaline Phosphatase 78 U/L (45-117); Anion Gap 8.8 mEq/L (5.0-15.0); BUN Blood Urea Nitrogen 18 mg/dL (7-18); Bicarbonate 26 mEq/L (21-32); Bilirubin Total 0.4 mg/dL (0.2-1.0); Globulin 3.1 g/dL (2.3-3.5); Glomerular Filtration Rate 45 ml/min (=/>90); Glucose Level 110 mg/dL (74-106); Lipase 33 U/L (13-75); Potassium 3.8 mEq/L (3.5-5.1); Protein, Total 6.6 g/dL (6.4-8.2); Sodium Level 139 mEq/L (136-145); Troponin High Sensitivity 5.4 pg/mL (<58.9)
[2024-06-24 18:15] LABS: Specific Gravity 1.007 (1.005-1.030); Urine Bilirubin NEGATIVE (Negative); Urine Blood Negative (Negative); Urine Clarity Clear (Clear); Urine Color Colorless (Yellow); Urine Glucose NEGATIVE (Negative); Urine Ketones NEGATIVE (Negative); Urine Microscopic Reflex YN NO UMIC; Urine Nitrite NEGATIVE (Negative); Urine Protein NEGATIVE (Negative); Urine Urobilinogen Normal (Normal)
[2024-06-24 18:16] LABS: ALT/SGPT < 14 U/L (13-56)
--- NOTE | 2024-06-24 19:22 | RAD REPORT ---
EXAMINATION: CT ABDOMEN AND PELVIS WITH CONTRAST CLINICAL INDICATION: Abdominal pain TECHNIQUE: CT abdomen and pelvis was performed, after the administration of 100 cc Isovue-300.. Sagit ely and coronal reconstructions were obtained. One or more of the following dose reduction techniques were used: Automated exposure control, adjustment of the mA and kV according to patient si ze, and iterative reconstruction. Unless otherwise specified, incidental findings do not require dedicated imaging follow-up. [id number]. Oral contrast was not given which limits evaluation of bowel and appendix. COMPARISON: none FINDINGS: The liver contains many low-density lesions. Some are a few millimeters others a few centimeters. The larger masses represent cysts.. The smaller ones are too small to characterize but are probably benign. The spleen, pancreas, adrenals and kidneys are unremarkable. Hysterectomy. No adnexal mass. Normal appendix. Diverticula stem from the colon. No evidence of diverticulitis. Small umbilical hernia. Spondylosis L1-2 : IMPRESSION: No acute abnormality displayed
--- NOTE | 2024-06-24 19:47 | EDPHYS ---
Physician Documentation [facility] Name: Nicholas Ledezma Age: 84 yrs Sex: Female : 1940 Arrival Date: 06/24/2024 Time: 16:06 Bed 19 Private MD: ED Physician Alan Garibay HPI: 06/24 19:44 This 84 yrs old Female presents to ER via Ambulatory with complaints of pain under kb breast, Nausea, fatigue. 19:44 Pt is a 84 year old female who presents for LUQ pain that has been intermittent for a kb couple of months. States the pain came on today around noon and she decided it was time to get it checked out just in case it was her heart. Denies nausea, vomiting, diarrhea, fever, chest pain, shortness of breath. . Historical: - Allergies: 16:20 Aleve; cm10 16:20 Augmentin; cm10 16:20 GABAPENTIN; cm10 16:20 Levaquin; cm10 16:20 Lyrica; cm10 16:20 meloxicam; cm10 16:20 Tizanidine; cm10 16:20 Sulfa (Sulfonamide Antibiotics); cm10 - PMHx: 16:20 Arthritis; BURSITIS; Hypothyroidism; Hypertensive disorder; Chronic back pain; cm10 - Immunization history:: Adult Immunizations not up to date. - Infectious Disease History:: Denies. - Social history:: Smoking status: Patient denies any tobacco usage or history of. ROS: 19:45 Constitutional: As per HPI kb Exam: 19:45 Constitutional: This is a well developed, well nourished patient who is awake, alert, kb and in no acute distress. Head/Face: Normocephalic, atraumatic. ENT: Moist Mucous membranes Cardiovascular: Regular rate Respiratory: Respirations even and unlabored. No increased work of breathing. Talking in full sentences Abdomen/GI: Soft, non-tender. No distention Skin: Warm, dry with normal turgor. Normal color. MS/ Extremity: Pulses equal, no cyanosis. Neurovascular intact. Full, normal range of motion. Neuro: Awake and alert, GCS 15, oriented to person, place, time, and situation. 19:47 ECG was reviewed by the Attending Physician. kb Vital Signs: 16:19 BP 157 / 72; Pulse 83; Resp 15; Temp 98.9(O); Pulse Ox 98% on R/A; Weight 78.02 kg; cm10 Height 5 ft. 4 in. ; Pain 8/10; 17:27 BP 170 / 73; Pulse 81; Resp 18; Pulse Ox 100% on R/A; db 18:30 BP 158 / 69; Pulse 80; Resp 18; Pulse Ox 98% on R/A; db 19:26 BP 152 / 71; Pulse 89; Resp 22; Pulse Ox 97% on R/A; jb4 16:19 Body Mass Index 29.52 (78.02 kg, 162.56 cm) cm10 16:19 Pain Scale: Adult cm10 MDM: 16:23 Medical Screening Exam initiated kb 19:46 Differential diagnosis: nonspecific abd pain, arrhythmia, gastroparesis, pancreatitis. kb Data reviewed: vital signs, nurses notes. Historians other than the Patient: Friend: friend. 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 06/24 16:40 Order name: CBC with Diff; Complete Time: 18:18 cm10 06/24 16:40 Order name: CMP; Complete Time: 18:18 cm10 06/24 16:40 Order name: Lipase; Complete Time: 18:18 cm10 06/24 16:40 Order name: Urinalysis w/ reflexes; Complete Time: 18:18 cm10 06/24 16:40 Order name: Troponin HS; Complete Time: 18:18 cm10 06/24 16:40 Order name: CT Abd/Pelvis - IV Contrast Only cm10 06/24 16:40 Order name: XRAY Chest (1 view); Complete Time: 18:18 cm10 06/24 19:23 Order name: CT; Complete Time: 19:25 EDMS 06/24 16:40 Order name: EKG; Complete Time: 16:40 cm10 06/24 16:40 Order name: IV Saline Lock; Complete Time: 17:46 cm10 06/24 16:40 Order name: Labs collected and sent; Complete Time: 17:46 cm10 06/24 16:40 Order name: Cardiac monitoring; Complete Time: 17:45 cm10 06/24 16:40 Order name: EKG - Nurse/Tech; Complete Time: 17:45 cm10 06/24 16:40 Order name: O2 Per Protocol; Complete Time: 17:45 cm10 06/24 16:40 Order name: O2 Sat Monitoring; Complete Time: 17:46 cm10 EC:47 Rate is 71 beats/min. Rhythm is regular. QRS [place] is Normal. GA interval is normal at kb 160 msec. QRS interval is normal at 64 msec. QT interval is normal at 430 msec. Administered Medications: No medications were administered Disposition Summary: 06/24/24 19:47 Discharge Ordered Notes: Location: Home kb Condition: Stable kb Diagnosis - Upper abdominal pain, unspecified kb Followup: kb - With: Emergency Department - When: As needed - Reason: Worsening of condition Followup: kb - With: Private Physician - When: 2 - 3 days - Reason: Recheck today's complaints, Continuance of care, Re-evaluation by your physician Discharge Instructions: - Discharge Summary Sheet kb - Abdominal Pain, Adult, [id number] kb Forms: - Medication Reconciliation Form kb - Antibiotic Education kb - Prescription Opioid Use kb - Patient Portal Instructions kb - Leadership Thank You Letter kb Signatures: Dispatcher [employer] Cassy Virk, KIMBERLEY-Gianluca LINDSEYP-Bethany Keen, RN RN cm10
--- NOTE | 2024-06-24 19:47 | ER ---
Nurse's Notes [facility] Name: Nicholas Ledezma Age: 84 yrs Sex: Female : 1940 Arrival Date: 06/24/2024 Time: 16:06 Bed 19 Private MD: Diagnosis: Upper abdominal pain, unspecified Presentation: 06/24 16:19 Chief complaint: Patient states: Started having LUQ abdominal pain today at noon. Pt cm10 reports that the pain is intermittent. Pt reports that she is also having nausea and feeling more fatigued. Coronavirus screen: Client denies travel out of the [place] in the last 14 days. Ebola Screen: Patient denies travel to an Ebola-affected area in the 21 days before illness onset. No symptoms or risks identified at this time. Initial Sepsis Screen: Does the patient meet any 2 criteria? No. Patient's initial sepsis screen is negative. Does the patient have a suspected source of infection? No. Patient's initial sepsis screen is negative. Risk Assessment: Do you want to hurt yourself or someone else? Patient reports no desire to harm self or others. Onset of symptoms was June 24, 2024. 16:19 Method Of Arrival: Ambulatory cm10 16:19 Acuity: JABIER 3 cm10 Triage Assessment: 16:21 General: Appears in no apparent distress. uncomfortable, Behavior is calm, cooperative. cm10 Neuro: No deficits noted. Level of Consciousness is awake, alert, obeys commands, Oriented to person, place, time, situation, Appropriate for age. Respiratory: No deficits noted. Airway is patent Respiratory effort is even, unlabored, Respiratory pattern is regular, symmetrical. Historical: - Allergies: 16:20 Aleve; cm10 16:20 Augmentin; cm10 16:20 GABAPENTIN; cm10 16:20 Levaquin; cm10 16:20 Lyrica; cm10 16:20 meloxicam; cm10 16:20 Tizanidine; cm10 16:20 Sulfa (Sulfonamide Antibiotics); cm10 - PMHx: 16:20 Arthritis; BURSITIS; Hypothyroidism; Hypertensive disorder; Chronic back pain; cm10 - Immunization history:: Adult Immunizations not up to date. - Infectious Disease History:: Denies. - Social history:: Smoking status: Patient denies any tobacco usage or history of. Screenin:[address] [facility] ED Fall Risk Assessment (Adult) History of falling in the last 3 months, db including since admission No falls in past 3 months (0 pts) Confusion or Disorientation No (0 pts) Intoxicated or Sedated No (0 pts) Impaired Gait No (0 pts) Mobility Assist Device Used No (0 pt) Altered Elimination No (0 pt) Score/Fall Risk Level 0 - 2 = Low Risk Oriented to surroundings, Maintained a safe environment. Abuse screen: Denies threats or abuse. Denies injuries from another. Nutritional screening: No deficits noted. Tuberculosis screening: No symptoms or risk factors identified. Assessment: 17:47 Reassessment: Patient appears in no apparent distress at this time. Patient and/or db family updated on plan of care and expected duration. Pain level reassessed. Patient is alert, oriented x 3, equal unlabored respirations, skin warm/dry/pink. General: Appears in no apparent distress. comfortable, Behavior is calm, cooperative. Pain: Complains of pain in chest and abdomen. GI: Abdomen is flat, non-distended. 18:47 Reassessment: Patient appears in no apparent distress at this time. Patient and/or db family updated on plan of care and expected duration. Pain level reassessed. Patient is alert, oriented x 3, equal unlabored respirations, skin warm/dry/pink. Patient states feeling better. 19:13 Reassessment: Patient appears in no apparent distress at this time. Patient and/or jb4 family updated on plan of care and expected duration. Pain level reassessed. Patient is alert, oriented x 3, equal unlabored respirations, skin warm/dry/pink. 20:09 Reassessment: Patient appears in no apparent distress at this time. Patient and/or jb4 family updated on plan of care and expected duration. Pain level reassessed. Patient is alert, oriented x 3, equal unlabored respirations, skin warm/dry/pink. Vital Signs: 16:19 BP 157 / 72; Pulse 83; Resp 15; Temp 98.9(O); Pulse Ox 98% on R/A; Weight 78.02 kg; cm10 Height 5 ft. 4 in. ; Pain 8/10; 17:27 BP 170 / 73; Pulse 81; Resp 18; Pulse Ox 100% on R/A; db 18:30 BP 158 / 69; Pulse 80; Resp 18; Pulse Ox 98% on R/A; db 19:26 BP 152 / 71; Pulse 89; Resp 22; Pulse Ox 97% on R/A; jb4 16:19 Body Mass Index 29.52 (78.02 kg, 162.56 cm) cm10 16:19 Pain Scale: Adult cm10 Vitals: 17:27 Cardiac Rhythm Assessment Regular. db ED Course: 16:12 Patient arrived in ED. im 16:20 Triage completed. cm10 16:22 Arm band placed on Patient placed in an exam room, on a stretcher. cm10 16:23 [facility]C [facility]. kb 16:23 Alan Garibay MD is Attending Physician. kb 17:05 Aida Barbosa, RN is Primary Nurse. db 17:35 XRAY Chest (1 view) In Process Unspecified. EDMS 17:35 Initial lab(s) drawn, by me, sent to lab. Urine collected: clean catch specimen, EKG db done, reviewed by Cassy ALLEN. Inserted saline lock: 20 gauge in left antecubital area, using aseptic technique. Blood collected. Flushed with 10 mL NS. 17:48 Patient has correct armband on for positive identification. Bed in low position. Call db light in reach. Side rails up X 1. Client placed on continuous cardiac and pulse oximetry monitoring. NIBP monitoring applied. bus driver/monitor on. Pulse ox on. NIBP on. Door closed. Noise minimized. Warm blanket given. Pillow given. 18:46 Patient moved to MT via stretcher. db 19:13 Perico Salazar, RN is Primary Nurse. jb4 20:09 Provided Education on: discharge instructions.. jb4 20:09 No provider procedures requiring assistance completed. IV discontinued, intact, jb4 bleeding controlled, No redness/swelling at site. Pressure dressing applied. Administered Medications: No medications were administered Medication: 17:48 VIS not applicable for this client. db Outcome: 19:47 Discharge ordered by . kb 20:09 Discharged to home ambulatory, jb4 20:09 Condition: stable 20:09 Discharge instructions given to patient, Instructed on discharge instructions, follow up and referral plans. Demonstrated understanding of instructions, follow-up care, 20:10 Patient left the ED. jb4 Signatures: Dispatcher [employer] EDMS Cassy Bryan FNP-C SPORTS DEVELOPMENT OFFICER-CkPerico Martin, RN RN jb4 Aida Barbosa, RN RN db Virgen George Clarissa, RN RN cm10
[2024-06-25 03:37] VITALS: TEMP 98.9
[2024-06-25 03:59] VITALS: BP 152/71; O2SAT 97
--- NOTE | 2024-06-25 12:15 | EKG ---
Test Date: 2024-06-24 Test Time: 17:30:53 Ice Delivery Driver: BOSSMAN MEASUREMENT RESULTS: Intervals: Rate: 71 WV: 160 QRSD: 64 QT: 396 QTc: 430 [place]: P: 16 WV: 160 QRS: 68 T: 74 INTERPRETIVE STATEMENTS: Normal sinus rhythm Nonspecific ST abnormality Abnormal ECG Compared to ECG 08/28/2021 07:56:55 ST (T wave) deviation now present Electronically Signed On 06-25-24 12:12:44 CDT by Ted Ayon
== END 2024-06-24 20:10 | disposition home or self-care (01) ==
LOC: ER 16:06
DX: R10.12 Left upper quadrant pain (principal); R11.0 Nausea; R53.83 Other fatigue; I10 Essential (primary) hypertension
CPT/HCPCS: 85025; 36415; 81003; 84484; 83690; 80053; 74177; 71045; Q9967; 93005